=== PATIENT | female | born 1995 | race Caucasian/White ===

== ENCOUNTER 2018-10-09 08:17 | Outpatient (CLI) | payer BC ==
[2018-10-09 08:49] VITALS: BP 129/70; RESP 16
[2018-10-09] MEDS ORDERED: LACTATED RINGERS 1,000 ML IV ONE (09:45)
[2018-10-09 09:46] LABS: Basophils % (A) 0 %; Eosinophils # (A) 0.2 k/uL (0-0.7); Eosinophils % (A) 2 %; HGB 11.9 gm/dL (11.4-16.0); Lymphocytes # (A) 0.7 k/uL (1.0-4.8); Lymphocytes % (A) 7 %; MCH 30.4 pg (25.0-35.0); MCHC 34.1 g/dL (31.0-37.0); MCV 89.2 fL (80.0-100.0); Mean Platelet Volume 7.7; Monocytes # (A) 0.6 k/uL (0-1.0); Monocytes % (A) 6 %; Neutrophils # (A) 8.2 k/uL (1.3-7.7); Neutrophils % (A) 84 %; Platelet Count 208 k/uL (150-450); RBC 3.92 m/uL (3.80-5.40); RDW 12.7 % (11.5-15.5); WBC 9.9 k/uL (3.8-10.6)
[2018-10-09 10:20] LABS: Appearance,Urine Clear (Clear); Bilirubin,Urine Negative (Negative); Blood,Urine Negative (Negative); Color,Urine Light Yellow; Glucose,Urine (UA) Negative (Negative); Ketones,Urine Negative (Negative); Leukocyte Esterase,Urine Negative (Negative); Nitrite,Urine Negative (Negative); PH, Urine 7.5 (5.0-8.0); Protein,Urine Negative (Negative); Specific Gravity,Urine 1.004 (1.001-1.035); Urobilinogen,Urine <2.0 mg/dL (<2.0)
[2018-10-09] MEDS ORDERED: ACETAMINOPHEN TAB 325 MG TAB PO PRN (10:20)
[2018-10-09 10:49] VITALS: PULSE 108; TEMP 99.8
--- NOTE | 2018-10-11 07:29 | P.MSEPDOC ---
Presenting Problems - Arrival Data Date of Arrival on Unit: 10/09/18 Time of Arrival on Unit: 08:45 Mode of Transport: Ambulatory - Complaint OB-Reason for Admission/Chief Complaint: Decreased Movement Comment: resp flu vomiting x 2 days Medical History - Information : 3 Para: 0 Term: 0 : 0 Abortions: Spontaneous or Elective: 0 Number of Living Children: 0 - Gestational Age Gestational Age by PATRICIA (wks/days): 32 Weeks and 5 Days Review of Systems - Review of Systems Constitutional: No problems Breast: No problems ENT: No problems Cardiovascular: No problems Respiratory: No problems Gastrointestinal: No problems Genitourinary: No problems Musculoskeletal: No problems Neurological: No problems Skin: No problems Vital Signs - Temperature Temperature: 99.8 F Temperature Source: Oral - Pulse Sitting Pulse Rate: 108 Pulse Assessment Method: Automatic Cuff - Respirations Respiratory Rate: 16 Oxygen Delivery Method: Room Air - Blood Pressure Right Arm Blood Pressure: 129/70 Blood Pressure Mean: 89 Blood Pressure Source: Automatic Cuff Medical Screen Scoring (Pre) - Cervical Exam Dilation: Exam Deferred - Pain Assessment Pain Scale Used: Numeric (1 - 10) Pain Intensity: 0 Pain Management Goal: 0 Pain Radiation Location: 0 Pain Duration: 0 - Maternal Trauma Maternal Trauma: N/A - Assessment Baseline FHR: 140 Heart Rate - NICHD Category: Category I (Normal) = 0 - Total Score Total Score (Pre): 0 - Level of Risk Level of Risk: Low (0-5) Physician Notification (Pre) - Physician Notified Physician Notified Date: 10/09/18 Physician Notified Time: 08:48 Physician/Practitioner Notifed:: DR NOLASCO New Order Received: Yes Medical Screen Scoring (Post) - Cervical Exam Dilation: 0 cm = 0 Membranes: Intact - Uterine Contractions Frequency: N/A Duration: N/A Intensity: N/A - Pain Assessment Pain Scale Used: Numeric (1 - 10) Pain Intensity: 0 Pain Management Goal: 0 FLACC Face: No Expression/Smile = 0 FLACC Legs: Relaxed = 0 FLACC Activity: Lying Quietly = 0 FLACC Cry: No Cry = 0 FLACC Consolability: Content/Relaxed = 0 FLACC Pain Score: 0 - Maternal Trauma Maternal Trauma: N/A - Assessment Heart Rate: 140 Heart Rate - NICHD Category: Category I (Normal) = 0 - Total Score Total Score (Post): 0 - Post Treatment Level of Risk Post Treatment Level of Risk: Low (0-5) Physician Notification (Post) - Physician Notified Physician Notified Date: 10/09/18 Physician Notified Time: 10:49 Physician/Practitioner Notified:: DR NOLASCO New Order Received: Yes - Notification Comment Comment: PT TO DISCHARGE HOME FOLLOW UP IF FEVERS RISE ABOVE 101 OR DONT RESPOND WITH TYLENOL Disposition - Disposition OB Disposition: Discharge to home, Written follow up instructions reviewed Discharge Date: 10/09/18 Discharge Time: 10:49 I agree with the RN Medical Screening Exam: Yes Risk & Benefit of care provided described in d/c instruction: Yes Diagnosis: DECREASED MOVEMENTS, THIRD TRIMESTER, UNSP
== END 2018-10-09 10:52 | disposition home or self-care (01) ==
LOC: FBPOP 08:17
PROVIDERS: ATTEND Obstetrics & Gynecology
DX: O36.8130 Decreased fetal movements, third trimester, not applicable or unspecified (principal); Z3A.32 32 weeks gestation of pregnancy
CPT/HCPCS: 59025; 81003; 85025; 87502; 96360; 99214

== ENCOUNTER 2018-11-22 19:20 | Inpatient (IN) | payer BC, OTHER ==
--- NOTE | 2018-11-22 21:57 | US ---
EXAMINATION TYPE: US OB limited DATE OF EXAM: 11/22/2018 COMPARISON: NONE CLINICAL HISTORY: KEON. Evaluate KEON EXAM PERFORMED: Transabdominal (TA) GESTATIONAL AGE / DATING Physician Established: (39 weeks/0 days) EDC: 11/29/18 No growth performed on today?s study per ordering physician SURVEY KEON: 6.3 cm lower end of normal HEART RATE: 158 bpm RHYTHM: Normal IMPRESSION: 1. Amniotic fluid index is low measuring 6.3 cm. Normal is 6.4-25.5 at this gestational age.
[2018-11-22 22:42] LABS: Basophils % (A) 0 %; Eosinophils # (A) 0.4 k/uL (0-0.7); Eosinophils % (A) 3 %; HGB 12.1 gm/dL (11.4-16.0); Lymphocytes % (A) 19 %; MCH 28.4 pg (25.0-35.0); MCHC 32.5 g/dL (31.0-37.0); MCV 87.2 fL (80.0-100.0); Mean Platelet Volume 8.3; Monocytes # (A) 0.8 k/uL (0-1.0); Monocytes % (A) 5 %; Neutrophils # (A) 10.9 k/uL (1.3-7.7); Neutrophils % (A) 71 %; Platelet Count 232 k/uL (150-450); RBC 4.25 m/uL (3.80-5.40); WBC 15.3 k/uL (3.8-10.6)
[2018-11-22 22:46] VITALS: BMI 31.1
[2018-11-22 22:49] LABS: Appearance,Urine Clear (Clear); Bacteria,Urine Rare /hpf; Bilirubin,Urine Negative (Negative); Blood,Urine Negative (Negative); Color,Urine Yellow; Glucose,Urine (UA) Negative (Negative); Ketones,Urine Negative (Negative); Leukocyte Esterase,Urine Negative (Negative); Mucus,Urine Occasional /hpf; Nitrite,Urine Negative (Negative); PH, Urine 5.5 (5.0-8.0); Protein,Urine 1+ (Negative); Squamous Epithelial Cell,Urine 1 /hpf (0-4); Urobilinogen,Urine <2.0 mg/dL (<2.0); WBC,Urine 1 /hpf (0-5)
[2018-11-22 23:04] LABS: ALT 49 U/L (9-52); AST 38 U/L (14-36); Blood Urea Nitrogen 14 mg/dL (7-17); LDH 616 U/L (313-618); Uric Acid 5.4 mg/dL (3.7-7.4)
[2018-11-23] MEDS ORDERED: METHYLERGONOVINE 0.2 MG/ML 1 ML AMP IM PRN (06:30)
[2018-11-23] MEDS ORDERED: CARBOPROST TROMETHAMINE 250 MCG/ML 1 ML AMP IM PRN (06:30)
[2018-11-23] MEDS ORDERED: TERBUTALINE 1 MG/ML VIAL SQ PRN (06:30)
[2018-11-23] MEDS ORDERED: OXYTOCIN 10 UNIT/ML 1 ML VIAL IM PRN (06:30)
[2018-11-23] MEDS ORDERED: LIDOCAINE 0.5% (PF) 5 MG/ML (50 ML SDV) SQ PRN (06:30)
[2018-11-23] MEDS ORDERED: OXYTOCIN 30 UNITS/500 ML NS 30 UNIT in SALINE 1 500ML.BAG IV SCH (06:30)
--- NOTE | 2018-11-23 06:38 | P.HPOB ---
History of Present Illness H&P Date: 11/23/18 Chief Complaint: Contractions This patient is a pleasant 23-year-old 3 para 0 female estimated date of confinement 11/29/2018 estimated gestational age 39 and one sevenths weeks who presented last evening to labor and delivery with complaint of contractions. Patient was found to have some elevated blood pressures Dr. Vitale did do blood work on her which showed a mild AST elevation 1+ protein and she was admitted for observation at that time. Patient presented with complaints of contractions is not having other symptomatology. Blood pressures are now normal. Patient transferred care to [facility] from [place]. care has been uncomplicated. Review of Systems Genitourinary: Reports Menstruation: Reports amenorrhea Past Medical History Past Medical History: Asthma Additional Past Medical History / Comment(s): anxiety ptsd depression History of Any Multi-Drug Resistant Organisms: None Reported Additional Past Surgical History / Comment(s): wisdom teeth removed Past Anesthesia/Blood Transfusion Reactions: No Reported Reaction Past Psychological History: Anxiety, Depression, PTSD Smoking Status: Never smoker Past Alcohol Use History: None Reported Past Drug Use History: None Reported - Past Family History Mother Family Medical History: No Reported History Medications and Allergies Allergies Allergy/AdvReac Type Severity Reaction Status Date / Time Penicillins Allergy Rash/Hives Verified 11/22/18 19:39 Exam Vital Signs Temp Pulse Resp BP Pulse Ox 11/23/18 03:57 98.0 F 93 16 134/81 99 11/22/18 23:58 97.9 F 89 16 125/64 11/22/18 23:55 97.9 F 94 16 125/64 97 11/22/18 22:36 98.1 F 93 18 146/85 97 11/22/18 19:40 99.0 F 103 H 18 146/95 96 Intake and Output 11/22/18 11/22/18 11/23/18 14:59 22:59 06:59 Other: # Voids 2 Weight 79.832 kg - OBG Physical Exam Abdomen: bowel sounds normal, no diffuse tenderness, no bruit present, no guarding noted, no hepatomegaly, no splenomegaly, no mass Vulva: both: normal Vagina: normal moisture, no discharge Cervix: no lesion (Cervix is 2-3 cm dilated 80% effaced -2 station.), no discharge Uterus: enlarged (Fundal height is consistent with a term .) Results blood work shows she is O-, rubella immune, RPR nonreactive, HIV is nonreactive, hepatitis B is negative, ultrasounds have shown normal anatomy and growth, Glucola was normal at 90, group B strep was positive, patient received RhoGAM on September 07. Result Diagrams: 11/22/18 22:25 11/22/18 22:25 Abnormal Lab Results - Last 24 Hours (Table) 11/22/18 11/22/18 11/22/18 Range/Units 22:00 22:00 22:25 WBC (3.8-10.6) k/uL Neutrophils # (1.3-7.7) k/uL AST 38 H (14-36) U/L Urine Protein 1+ H (Negative) Urine Bacteria Rare H (None) /hpf Urine Mucus Occasional H (None) /hpf U Random Total Protein 26 H (<12) mg/dL 11/22/18 Range/Units 22:25 WBC 15.3 H (3.8-10.6) k/uL Neutrophils # 10.9 H (1.3-7.7) k/uL AST (14-36) U/L Urine Protein (Negative) Urine Bacteria (None) /hpf Urine Mucus (None) /hpf U Random Total Protein (<12) mg/dL Assessment and Plan Assessment: This is a pleasant 23-year-old 3 para 0 female 39 and one sevenths weeks gestation who is admitted to labor and delivery last evening for her gestational hypertension. Plan at this time is to proceed with augmentation of labor. Patient also be given antibiotics due to positive group B strep culture. Anticipate vaginal delivery. (1) 39 weeks gestation of Current Visit: Yes Status: Acute Code(s): Z3A.39 - 39 WEEKS GESTATION OF SNOMED Code(s): 71251138 (2) Gestational hypertension Current Visit: Yes Status: Acute Code(s): O13.9 - GESTATIONAL HTN W/O SIGNIFICANT PROTEINURIA, UNSP TRIMESTER SNOMED Code(s): 737708748 (3) Group B streptococcal carriage complicating Current Visit: Yes Status: Acute Code(s): O99.820 - STREPTOCOCCUS B CARRIER STATE COMPLICATING SNOMED Code(s): 626940302002387 (4) Rh negative status during Current Visit: Yes Status: Acute Code(s): O26.899 - OTH RELATED CONDITIONS, UNSPECIFIED TRIMESTER; Z67.91 - UNSPECIFIED BLOOD TYPE, RH NEGATIVE SNOMED Code(s): 395434074
[2018-11-23] MEDS: LACTATED RINGERS 1,000 ML IV SCH ×4 (07:00→21:36)
[2018-11-23] MEDS ORDERED: SODIUM CHLORIDE 0.9% 100 ML BAG ONE (10:10)
[2018-11-23] MEDS ORDERED: ROPIVACAINE 5MG/ML 20ML VIAL ONE (10:10)
[2018-11-23] MEDS ORDERED: fentaNYL (PF) 50 MCG/ML 5 ML AMP ONE (10:10)
[2018-11-23] MEDS ORDERED: ROPIVACAINE 100 MG, fentaNYL (PF) 200 MCG in SODIUM CHLORIDE 0.9% 76 ML EPIDURAL ONE (11:10)
[2018-11-23] MEDS ORDERED: diphenhydrAMINE 50 MG/ML 1 ML VIAL IVP PRN (14:17)
[2018-11-23] MEDS ORDERED: BISACODYL 10 MG SUPP RECTAL PRN (14:17)
[2018-11-23] MEDS ORDERED: WITCH HAZEL 1 EACH MED..PAD TOPICAL PRN (14:17)
[2018-11-23] MEDS ORDERED: ACETAMINOPHEN TAB 325 MG TAB PO PRN (14:17)
[2018-11-23] MEDS ORDERED: ZOLPIDEM 5 MG TAB PO PRN (14:17)
[2018-11-23] MEDS ORDERED: BENZOCAINE/MENTHOL SPRAY 1 GM/SPRAY AEROSOL TOPICAL PRN (14:17)
[2018-11-23] MEDS ORDERED: Rhogam IMMUNE GLOBULIN 1,500 UNIT/1 ML IM ONE (14:17)
[2018-11-23] MEDS ORDERED: LANOLIN CREAM 5 GM TUBE TOPICAL PRN (14:17)
[2018-11-23] MEDS ORDERED: SIMETHICONE 80 MG CHEWABLE PO PRN (14:17)
[2018-11-23] MEDS ORDERED: OXYTOCIN 20 UNITS/1000 ML NS 1,000 ML IV SCH (14:17)
[2018-11-23] MEDS ORDERED: HYDROCORTISONE 2.5% RECTAL CREAM 30 GM TUBE RECTAL PRN (14:17)
[2018-11-23] MEDS ORDERED: diphenhydrAMINE 25 MG CAP PO PRN (14:17)
[2018-11-23] MEDS ORDERED: CLINDAMYCIN 900 MG in DEXTROSE 5% IN WATER 50 ML IVPB SCH ×2 (14:31)
[2018-11-23] MEDS: SENNOSIDES-DOCUSATE SODIUM 1 EACH TAB PO SCH ×2 (16:35→21:30)
--- NOTE | 2018-11-23 17:07 | P.PROBDLV ---
Vaginal Delivery Note - . Vaginal Delivery Note: Normal spontaneous vaginal delivery viable female infant Apgars 9 and 9 delivery time is 1350 hrs. Please see dictated H&P for intimate details of this patient's admission. Brief summary this is a pleasant 23-year-old 3 para 0 female 39-0/7 weeks gestation who is admitted to labor and delivery last evening with complaints of contractions and was found to have some mild blood pressure elevations.'s morning patient still having contractions the blood pressures were normal. Preeclampsia labs were negative with the exception of mild AST elevation. Patient is artificial rupture membranes at 2-3 cm dilated for clear fluid. Labor is induced with Pitocin. Patient's labor progresses normally and she does get an epidural for pain control. Patient quickly gets to complete pushes for approximately 60 minutes. Patient pushes the head to the perineum the posterior perineum was supported and we have controlled delivery of the 's head over the intact perineum. Mouth and nares are bulb suctioned. There is no evidence of nuchal cord. At this time there is spontaneous delivery the anterior posterior shoulder and rest this 's body. This is a vigorous viable female infant Apgars are 9 and 9 delivery time is 1350 hrs. After delivery of the infant the is laid on the mother's abdomen after the cord is then pulsating is doubly clamped and then cut. The placenta is then spontaneously delivered intact. Inspection of the perineum shows a first-degree posterior laceration was repaired with 3-0 Vicryl in the usual fashion. Excellent reapproximation is noted. Estimated blood loss is 150 mL. There are no complications. All counts correct 3. Infant and mother are stable delivery room.
[2018-11-23] MEDS: IBUPROFEN 600 MG TAB PO PRN ×2 (17:28→22:49)
--- NOTE | 2018-11-24 05:59 | P.PNOBGVD ---
Subjective - Subjective Patient reports: Reports appetite normal, Reports voiding normally, Reports pain well controlled, Reports ambulating normally : doing well Objective - Latest Vital Signs Latest vital signs: Vital Signs Temp Pulse Resp BP Pulse Ox 11/24/18 00:00 98 F 93 15 135/89 11/23/18 20:00 98 F 90 15 133/85 11/23/18 16:00 98.9 F 116 H 14 130/78 99 11/23/18 15:30 98.4 F 103 H 16 136/71 11/23/18 15:00 99.4 F 112 H 14 129/76 11/23/18 14:45 122 H 16 148/66 11/23/18 14:30 112 H 16 137/74 11/23/18 14:15 122 H 16 134/81 11/23/18 14:00 100.0 F H 126 H 14 124/78 Intake and Output 11/23/18 11/23/18 11/24/18 14:59 22:59 06:59 Other: # Voids 1 - Exam Lungs: bilateral: normal Chest: Normal S1, Normal S2 Extremities: Present: normal Abdomen: Present: normal appearance, soft Uterus: Present: normal, firm Assessment and Plan Assessment: day #1. Patient is resting without complaints. Blood pressures are good. Patient is afebrile. Uterus is firm nontender and she is having normal lochia. Repeat blood work is pending. I impression this is a normal post course. Patient is going to stay today for monitoring and repeat blood work and will be discharged home tomorrow. (1) 39 weeks gestation of Current Visit: Yes Status: Acute Code(s): Z3A.39 - 39 WEEKS GESTATION OF SNOMED Code(s): 59089904 (2) Gestational hypertension Current Visit: Yes Status: Acute Code(s): O13.9 - GESTATIONAL HTN W/O SIGNIFICANT PROTEINURIA, UNSP TRIMESTER SNOMED Code(s): 224280133 (3) Group B streptococcal carriage complicating Current Visit: Yes Status: Acute Code(s): O99.820 - STREPTOCOCCUS B CARRIER STATE COMPLICATING SNOMED Code(s): 378132466159307 (4) Rh negative status during Current Visit: Yes Status: Acute Code(s): O26.899 - OTH RELATED CONDITIONS, UNSPECIFIED TRIMESTER; Z67.91 - UNSPECIFIED BLOOD TYPE, RH NEGATIVE SNOMED Code(s): 478199946
[2018-11-24] MEDS: SENNOSIDES-DOCUSATE SODIUM 1 EACH TAB PO SCH ×2 (07:31→21:26)
[2018-11-24] MEDS: IBUPROFEN 600 MG TAB PO PRN ×3 (07:31→19:20)
[2018-11-24 08:27] LABS: Basophils % (A) 0 %; Eosinophils # (A) 0.2 k/uL (0-0.7); Eosinophils % (A) 2 %; HCT 28.4 % (34.0-46.0); Lymphocytes # (A) 2.3 k/uL (1.0-4.8); Lymphocytes % (A) 19 %; MCH 29.2 pg (25.0-35.0); MCHC 32.4 g/dL (31.0-37.0); MCV 90.1 fL (80.0-100.0); Mean Platelet Volume 8.2; Monocytes # (A) 0.7 k/uL (0-1.0); Monocytes % (A) 6 %; Neutrophils # (A) 8.6 k/uL (1.3-7.7); Neutrophils % (A) 72 %; Platelet Count 182 k/uL (150-450); RBC 3.16 m/uL (3.80-5.40); RDW 14.4 % (11.5-15.5)
[2018-11-24 08:33] LABS: Albumin 2.6 g/dL (3.5-5.0)
[2018-11-24 08:59] LABS: Bilirubin,Unconjugated 0.2 mg/dL (0.0-1.1); Total Bilirubin 0.2 mg/dL (0.2-1.3)
[2018-11-24 09:01] LABS: HGB 9.2 gm/dL (11.4-16.0)
[2018-11-24] MEDS ORDERED: IRON AG/C/B12/CA/SUC.ACID/STOM 1 EACH TAB PO SCH (13:30)
[2018-11-25] MEDS: IBUPROFEN 600 MG TAB PO PRN ×2 (01:06→09:18)
--- NOTE | 2018-11-25 06:19 | P.PNOBGVD ---
Subjective - Subjective Patient reports: Reports appetite normal, Reports voiding normally, Reports pain well controlled, Reports ambulating normally : doing well Objective - Latest Vital Signs Latest vital signs: Vital Signs Temp Pulse Resp BP 11/25/18 00:00 98 F 97 15 131/73 11/24/18 16:00 97.8 F 86 14 144/92 11/24/18 08:00 98 F 88 14 132/82 - Exam Lungs: bilateral: normal Chest: Normal S1, Normal S2 Extremities: Present: normal Abdomen: Present: normal appearance, soft Uterus: Present: normal, firm - Labs Labs: Abnormal Lab Results - Last 24 Hours (Table) 11/24/18 11/24/18 Range/Units 06:13 06:13 WBC 12.0 H (3.8-10.6) k/uL RBC 3.16 L (3.80-5.40) m/uL Hgb 9.2 L D (11.4-16.0) gm/dL Hct 28.4 L (34.0-46.0) % Neutrophils # 8.6 H (1.3-7.7) k/uL AST 39 H (14-36) U/L Alkaline Phosphatase 132 H (38-126) U/L Total Protein 5.0 L (6.3-8.2) g/dL Albumin 2.6 L (3.5-5.0) g/dL Assessment and Plan Assessment: day #2. Patient is resting without complaints. Vital signs are stable and she is afebrile. Uterus is firm nontender and she is having normal lochia. CBC yesterday showed hemoglobin 9.2, normal platelets. Liver function tests remained unchanged. Blood pressures are stable without indication for treatment. Plan at this time is to discharge home follow up with me in 6 weeks. I discussed indications to call for. (1) 39 weeks gestation of Current Visit: Yes Status: Acute Code(s): Z3A.39 - 39 WEEKS GESTATION OF SNOMED Code(s): 22304277 (2) Gestational hypertension Current Visit: Yes Status: Acute Code(s): O13.9 - GESTATIONAL HTN W/O SIGNIFICANT PROTEINURIA, UNSP TRIMESTER SNOMED Code(s): 068681251 (3) Group B streptococcal carriage complicating Current Visit: Yes Status: Acute Code(s): O99.820 - STREPTOCOCCUS B CARRIER STATE COMPLICATING SNOMED Code(s): 698072762806906 (4) Rh negative status during Current Visit: Yes Status: Acute Code(s): O26.899 - OTH RELATED CONDITIONS, UNSPECIFIED TRIMESTER; Z67.91 - UNSPECIFIED BLOOD TYPE, RH NEGATIVE SNOMED Code(s): 876818599
--- NOTE | 2018-11-25 06:22 | P.DS ---
Providers Date of admission: 11/23/18 10:23 Expected date of discharge: 11/25/18 Attending physician: Angel Larson Primary care physician: Stated None - Discharge Diagnosis(es) (1) 39 weeks gestation of Current Visit: Yes Status: Acute (2) Gestational hypertension Current Visit: Yes Status: Acute (3) Group B streptococcal carriage complicating Current Visit: Yes Status: Acute (4) Rh negative status during Current Visit: Yes Status: Acute Hospital Course: Please see dictated H&P for intimate details of this patient's admission. In brief summary this is a pleasant 23-year-old 3 para 0 female admitted to labor and delivery complaining of contractions. She's thought to be in early labor have some mild gestational hypertension. Patient went on to have a vaginal delivery viable female infant. Please see dictated delivery note. day #2 patient's felt be stable for discharge home follow up with me in 6 weeks. Procedures: Normal vaginal delivery viable female infant Patient Condition at Discharge: Good
[2018-11-25 07:37] VITALS: BP 134/81; PULSE 92; RESP 19; TEMP 98.1
[2018-11-25] MEDS: SENNOSIDES-DOCUSATE SODIUM 1 EACH TAB PO SCH (09:37)
== END 2018-11-25 14:37 | disposition home or self-care (01) | DRG 807 ==
LOC: FBPOP 19:20 → 4FBP 21:55 → OBSVTOIN 11-23 10:23
PROVIDERS: ADMIT Obstetrics & Gynecology; ATTEND Obstetrics & Gynecology
PROC: 3E0234Z Introduction of Serum, Toxoid and Vaccine into Muscle, Percutaneous Approach (ICD-10-PCS; principal; 2018-11-23)
PROC: 10E0XZZ Delivery of Products of Conception, External Approach (ICD-10-PCS; 2018-11-23)
PROC: 10907ZC Drainage of Amniotic Fluid, Therapeutic from Products of Conception, Via Natural or Artificial Opening (ICD-10-PCS; 2018-11-23)
PROC: 3E033VJ Introduction of Other Hormone into Peripheral Vein, Percutaneous Approach (ICD-10-PCS; 2018-11-23)
PROC: 0HQ9XZZ Repair Perineum Skin, External Approach (ICD-10-PCS; 2018-11-23)
DX: O13.4 Gestational [pregnancy-induced] hypertension without significant proteinuria, complicating childbirth (principal); Z37.0 Single live birth; O99.824 Streptococcus B carrier state complicating childbirth; O26.893 Other specified pregnancy related conditions, third trimester; O70.0 First degree perineal laceration during delivery; Z3A.39 39 weeks gestation of pregnancy; Z67.91 Unspecified blood type, Rh negative
CPT/HCPCS: 59025; 76815; 80076; 81001; 82565; 82570; 83615; 84156; 84450; 84460; 84520; 84550; 85025; 85461; 86850; 86870; 86880; 86900; 86901; 99213

== ENCOUNTER 2019-09-23 15:42 | Outpatient (CLI) | payer OTHER ==
[2019-09-23 16:20] LABS: Appearance,Urine Clear (Clear); Bilirubin,Urine Negative (Negative); Blood,Urine Negative (Negative); Color,Urine Yellow; Glucose,Urine (UA) Negative (Negative); Ketones,Urine Negative (Negative); Leukocyte Esterase,Urine Negative (Negative); Nitrite,Urine Negative (Negative); PH, Urine 5.5 (5.0-8.0); Protein,Urine Negative (Negative); Specific Gravity,Urine 1.027 (1.001-1.035); Urobilinogen,Urine <2.0 mg/dL (<2.0)
[2019-09-23 16:27] VITALS: BP 128/61; PULSE 92; RESP 18; TEMP 97.5
--- NOTE | 2019-09-23 19:10 | P.MSEPDOC ---
Presenting Problems - Arrival Data Date of Arrival on Unit: 09/23/19 Time of Arrival on Unit: 16:25 Mode of Transport: Ambulatory - Complaint OB-Reason for Admission/Chief Complaint: Pain Medical History - Information : 5 Para: 1 Term: 1 : 0 Abortions: Spontaneous or Elective: 3 Number of Living Children: 1 - Gestational Age Gestational Age by PATRICIA (wks/days): 22 Weeks and 4 Days Review of Systems - Review of Systems Constitutional: No problems Breast: No problems ENT: No problems Cardiovascular: No problems Respiratory: No problems Gastrointestinal: No problems Genitourinary: No problems Musculoskeletal: No problems Neurological: No problems Skin: No problems Vital Signs - Temperature Temperature: 97.5 F Temperature Source: Temporal Artery Scan - Pulse Right Sitting Brachial Pulse Rate: 92 Pulse Assessment Method: Automatic Cuff - Respirations Respiratory Rate: 18 Oxygen Delivery Method: Room Air O2 Sat by Pulse Oximetry: 100 - Blood Pressure Right Arm Sitting Blood Pressure: 128/61 Blood Pressure Mean: 83 Blood Pressure Source: Automatic Cuff Medical Screen Scoring (Pre) - Cervical Exam Dilation: 0 cm = 0 - Uterine Contractions Frequency: N/A Duration: N/A Intensity: N/A - Maternal Vital Signs Maternal Temperature: N/A Maternal Blood Pressure: N/A Signs of Preeclampsia: N/A Maternal Respirations: N/A - Maternal Trauma Maternal Trauma: N/A - Assessment - Baby A Baseline FHR: 135 Heart Rate - NICHD Category: Category I (Normal) = 0 Position: N/A Station: N/A - Total Score - Baby A Total Score - Baby A: 0 - Total Score - Baby B Total Score - Baby B: 0 - Total Score - Baby C Total Score - Baby C: 0 - Level of Risk - Baby A Level of Risk - Baby A: Low (0-5) - Level of Risk - Baby B Level of Risk - Baby B: Low (0-5) - Level of Risk - Baby C Level of Risk - Baby C: Low (0-5) Physician Notification (Pre) - Physician Notified Physician Notified Date: 09/23/19 Physician Notified Time: 16:20 New Order Received: Yes - Notification Comment Comment: dc home if cervix closed. pelvic rest. follow up as scheduled. Disposition - Disposition OB Disposition: Discharge to home Discharge Date: 09/23/19 Discharge Time: 16:25 I agree with the RN Medical Screening Exam: Yes Risk & Benefit of care provided described in d/c instruction: Yes Diagnosis: PAIN, UNSPECIFIED
== END 2019-09-23 16:28 | disposition home or self-care (01) ==
LOC: FBPOP 15:42
PROVIDERS: ATTEND Obstetrics & Gynecology
DX: O99.89 Other specified diseases and conditions complicating pregnancy, childbirth and the puerperium (principal); R52 Pain, unspecified; Z3A.22 22 weeks gestation of pregnancy
CPT/HCPCS: 81003; G0463; 99213

== ENCOUNTER 2020-01-17 06:00 | Inpatient (IN) | payer BC ==
--- NOTE | 2020-01-17 14:28 | P.HPOB ---
History of Present Illness H&P Date: 01/17/20 Chief Complaint: Requested induction of labor. This patient is a pleasant 24 yr EDC 01/23/2020 estimated gestational age 39 2/7 weeks who presents to L&D for requested induction of labor. care has been uncomplicated with the exception of maternal tachycardia with a negative cardiac evaluation. History of positive GBS with her 1st (negative this ). Review of Systems Cardiovascular: Reports as per HPI Genitourinary: Reports Menstruation: Reports amenorrhea Past Medical History Past Medical History: Asthma Additional Past Medical History / Comment(s): Maternal tachycardia (negative evaluation). History of anxiety/depression. History of Any Multi-Drug Resistant Organisms: None Reported Past Surgical History: No Surgical Hx Reported Additional Past Surgical History / Comment(s): wisdom teeth removed Past Anesthesia/Blood Transfusion Reactions: No Reported Reaction Past Psychological History: Anxiety, Depression, PTSD Smoking Status: Never smoker Past Alcohol Use History: None Reported Past Drug Use History: None Reported - Past Family History Mother Family Medical History: No Reported History Medications and Allergies Home Medications Medication Instructions Recorded Confirmed Type Ibuprofen [Motrin] 600 mg PO Q6HR PRN #40 tab 11/25/18 Rx Iron Ag/C/B12/Ca/Suc.acid/Stom 1 each PO DAILY #30 tab 11/25/18 Rx [Multigen] Allergies Allergy/AdvReac Type Severity Reaction Status Date / Time Penicillins Allergy Rash/Hives Verified 11/22/18 19:39 Exam - OBG Physical Exam Abdomen: bowel sounds normal, no diffuse tenderness, no bruit present, no guarding noted, no hepatomegaly, no splenomegaly, no mass Vulva: both: normal Vagina: normal moisture, no discharge Cervix: no lesion (Cx 2/uneffaced/soft (office)), no discharge Uterus: enlarged (Fundal height is 38 cm. ) Results bloodwork: O negative (received Rhogam 11/09), Rubella Non-Immune, VXP-XLM-VtnH negative, Glucola 64, GBS negative (positive 1st ), ultrasounds have been normal. Assessment and Plan Assessment: This is a pleasant 24 yr female estimated gestational age 39 2/7 weeks who presents for requested induction of labor. History of positive GBS 1st . Plan is antibiotic prophylaxis and induction of labor. Anticipate vaginal delivery. (1) 39 weeks gestation of Status: Acute Code(s): Z3A.39 - 39 WEEKS GESTATION OF SNOMED Code(s): 41644138 (2) Rh negative status during Status: Acute Code(s): O26.899 - OTH RELATED CONDITIONS, UNSPECIFIED TRIMESTER; Z67.91 - UNSPECIFIED BLOOD TYPE, RH NEGATIVE SNOMED Code(s): 322186965 (3) Elective induction of labor planned Status: Acute Code(s): XXH9713 - SNOMED Code(s): 347601030 (4) History of group B Streptococcus (GBS) infection Status: Acute Code(s): Z86.19 - PERSONAL HISTORY OF OTHER INFECTIOUS AND PARASITIC DISEASES SNOMED Code(s): 778386953
[2020-01-18] MEDS ORDERED: OXYTOCIN 10 UNIT/ML 1 ML VIAL IM PRN (05:56)
[2020-01-18] MEDS ORDERED: TERBUTALINE 1 MG/ML VIAL SQ PRN (05:56)
[2020-01-18] MEDS ORDERED: METHYLERGONOVINE 0.2 MG/ML 1 ML AMP IM PRN (05:56)
[2020-01-18] MEDS ORDERED: LIDOCAINE 0.5% (PF) 5 MG/ML (50 ML SDV) SQ PRN (05:56)
[2020-01-18] MEDS ORDERED: CARBOPROST TROMETHAMINE 250 MCG/ML 1 ML AMP IM PRN (05:56)
[2020-01-18] MEDS ORDERED: OXYTOCIN 30 UNITS/500 ML NS 30 UNIT in SALINE 1 500ML.BAG IV SCH (05:56)
[2020-01-18] MEDS: LACTATED RINGERS 1,000 ML IV SCH ×2 (05:58→09:11)
[2020-01-18 06:07] VITALS: RESP 16
[2020-01-18 06:22] LABS: Basophils % (A) 0 %; Eosinophils # (A) 0.4 k/uL (0-0.7); Eosinophils % (A) 3 %; HCT 33.8 % (34.0-46.0); HGB 11.4 gm/dL (11.4-16.0); Lymphocytes # (A) 2.2 k/uL (1.0-4.8); Lymphocytes % (A) 20 %; MCH 27.6 pg (25.0-35.0); MCHC 33.6 g/dL (31.0-37.0); MCV 82.2 fL (80.0-100.0); Mean Platelet Volume 8.3; Monocytes # (A) 0.6 k/uL (0-1.0); Monocytes % (A) 5 %; Neutrophils # (A) 7.5 k/uL (1.3-7.7); Neutrophils % (A) 69 %; Platelet Count 262 k/uL (150-450); RBC 4.12 m/uL (3.80-5.40); RDW 14.6 % (11.5-15.5)
[2020-01-18] MEDS ORDERED: ROPIVACAINE 5MG/ML 20ML VIAL ONE (08:55)
[2020-01-18] MEDS ORDERED: fentaNYL (PF) 50 MCG/ML 5 ML AMP ONE (08:55)
[2020-01-18] MEDS ORDERED: SODIUM CHLORIDE 0.9% 100 ML BAG ONE (08:55)
[2020-01-18] MEDS ORDERED: SIMETHICONE 80 MG CHEWABLE PO PRN (12:25)
[2020-01-18] MEDS ORDERED: diphenhydrAMINE 50 MG/ML 1 ML VIAL IVP PRN (12:25)
[2020-01-18] MEDS ORDERED: Rhogam IMMUNE GLOBULIN 1,500 UNIT/1 ML IM ONE (12:25)
[2020-01-18] MEDS ORDERED: BENZOCAINE/MENTHOL SPRAY 1 GM/SPRAY AEROSOL TOPICAL PRN (12:25)
[2020-01-18] MEDS ORDERED: MEASLES-MUMPS-RUBELLA VACC/PF 12,500 UNIT/0.5 ML VIAL SQ ONE (12:25)
[2020-01-18] MEDS ORDERED: IBUPROFEN 600 MG TAB PO PRN (12:25)
[2020-01-18] MEDS ORDERED: WITCH HAZEL 1 EACH MED..PAD TOPICAL PRN (12:25)
[2020-01-18] MEDS ORDERED: diphenhydrAMINE 25 MG CAP PO PRN (12:25)
[2020-01-18] MEDS ORDERED: ZOLPIDEM 5 MG TAB PO PRN (12:25)
[2020-01-18] MEDS ORDERED: BISACODYL 10 MG SUPP RECTAL PRN (12:25)
[2020-01-18] MEDS ORDERED: OXYTOCIN 20 UNITS/1000 ML NS 1,000 ML IV SCH (12:25)
[2020-01-18] MEDS ORDERED: HYDROCORTISONE 2.5% RECTAL CREAM 30 GM TUBE RECTAL PRN (12:25)
[2020-01-18] MEDS ORDERED: LANOLIN CREAM 5 GM TUBE TOPICAL PRN (12:25)
--- NOTE | 2020-01-18 14:10 | P.PROBDLV ---
Vaginal Delivery Note - . Vaginal Delivery Note: Normal vaginal delivery viable male infant Apgars 9 and 9 delivery time was 1202 hrs. Please see dictated H&P for intimate details of this patient's admission. Brief summary is a pleasant 24-year-old 4 para 1 female 39-2/7 weeks gestation admitted to labor and delivery for requested induction of labor. On admission patient is proximate 3 cm dilation is artificial rupture membranes for clear fluid. Labor is induced with Pitocin per protocol. Patient's labor progresses and she does get an epidural for pain control. Patient gets to complete and with proximally 2 pushes pushes the head to the perineum. Posterior perineum is supported and we have controlled delivery of infant's head over the intact perineum. Mouth and nares are bulb suctioned. There is a nuchal cord which is reduced. Gentle downward traction we then have deliver the anterior and posterior shoulder and rest this infant's body. This is a vigorous viable male Apgars 9 and 9 delivery time was 1202 hrs. After delivery of the infant the is laid the mother's abdomen the cord was allowed to quit pulsating then doubly clamped and cut. It appears to be trivascular. Placenta spontaneously delivered intact. Estimated blood loss is approximately 100-250 mL. Inspection of the perineum shows only superficial tears which did not require suturing. All counts are correct 3. There are no complications. and mother stable delivery room.
[2020-01-18] MEDS: ACETAMINOPHEN TAB 325 MG TAB PO PRN ×2 (16:11→22:54)
[2020-01-18] MEDS: SENNOSIDES-DOCUSATE SODIUM 1 EACH TAB PO SCH ×2 (16:11→20:11)
--- NOTE | 2020-01-19 06:58 | P.PNOBGVD ---
Subjective - Subjective Patient reports: Reports appetite normal, Reports voiding normally, Reports pain well controlled, Reports ambulating normally : doing well Objective - Latest Vital Signs Latest vital signs: Vital Signs Temp Pulse Resp BP 01/18/20 23:40 98.3 F 80 16 114/69 01/18/20 20:00 98.9 F 99 16 112/73 01/18/20 16:00 99.0 F 106 H 16 116/55 01/18/20 14:30 99.0 F 101 H 16 124/59 01/18/20 14:00 108 H 16 133/60 01/18/20 13:30 98.3 F 97 16 123/60 01/18/20 13:15 81 16 117/63 01/18/20 13:00 98.2 F 82 16 112/61 01/18/20 12:45 90 16 117/64 01/18/20 12:30 88 16 116/58 01/18/20 12:15 98.3 F 93 16 106/58 Intake and Output 01/18/20 01/18/20 01/19/20 14:59 22:59 06:59 Output Total 50 Balance -50 Output: Estimated Blood Loss 50 Other: # Voids 1 1 - Exam Lungs: bilateral: normal Chest: Normal S1, Normal S2 Extremities: Present: normal Abdomen: Present: normal appearance, soft Uterus: Present: normal, firm Assessment and Plan Assessment: day #1. Patient is resting without complaints and wishes to go home. Vital signs are stable she is afebrile. Uterus is firm nontender she's having normal lochia. My impression this is a normal course. Plan is to continue routine care discharge home later today. (1) 39 weeks gestation of Current Visit: No Status: Acute Code(s): Z3A.39 - 39 WEEKS GESTATION OF SNOMED Code(s): 03906274 (2) Rh negative status during Current Visit: No Status: Acute Code(s): O26.899 - OTH RELATED CONDITIONS, UNSPECIFIED TRIMESTER; Z67.91 - UNSPECIFIED BLOOD TYPE, RH NEGATIVE SNOMED Code(s): 064006087 (3) Elective induction of labor planned Current Visit: No Status: Acute Code(s): TQM4037 - SNOMED Code(s): 693093516 (4) History of group B Streptococcus (GBS) infection Current Visit: No Status: Acute Code(s): Z86.19 - PERSONAL HISTORY OF OTHER INFECTIOUS AND PARASITIC DISEASES SNOMED Code(s): 822189265
--- NOTE | 2020-01-19 07:01 | P.DS ---
Providers Date of admission: 01/18/20 05:50 Expected date of discharge: 01/19/20 Attending physician: Angel Larson Primary care physician: Stated None - Discharge Diagnosis(es) (1) 39 weeks gestation of Current Visit: No Status: Acute (2) Rh negative status during Current Visit: No Status: Acute (3) Elective induction of labor planned Current Visit: No Status: Acute (4) History of group B Streptococcus (GBS) infection Current Visit: No Status: Acute Hospital Course: Please see dictated H&P for intimate details of this patient's admission. Brief summary this is a pleasant 24-year-old 4 para 1 female 39-2/7 weeks gestation admitted to labor and delivery for requested induction of labor. Patient is admitted she is uncomplicated induction of labor quickly goes on have a vaginal delivery viable male . Please see dictated delivery note. day 1 patient without complaints wishes to go home. Patient's felt be stable for discharge home follow up with me in 6 weeks. Procedures: Induction of labor and normal vaginal delivery Patient Condition at Discharge: Good Plan - Discharge Summary New Discharge Prescriptions: New Ibuprofen [Motrin] 600 mg PO Q6HR PRN #30 tab PRN Reason: Mild Pain Or Fever >= 100.5 Discharge Medication List Ibuprofen [Motrin] 600 mg PO Q6HR PRN #30 tab 01/19/20 [Rx] Follow up Appointment(s)/Referral(s): Angel Larson MD [STAFF PHYSICIAN] - 02/29/20 10:15 am Patient Instructions/Handouts: Vaginal Delivery (DC) Activity/Diet/Wound Care/Special Instructions: No intercourse or anything per vagina for 6 weeks. Please call if any fever, chills, excessive vaginal bleeding, and/or abdominal pain. Discharge Disposition: HOME SELF-CARE
[2020-01-19] MEDS: ACETAMINOPHEN TAB 325 MG TAB PO PRN (07:58)
[2020-01-19] MEDS: SENNOSIDES-DOCUSATE SODIUM 1 EACH TAB PO SCH (07:59)
[2020-01-19 08:14] VITALS: BP 120/67; PULSE 98; TEMP 98.1
== END 2020-01-19 13:12 | disposition home or self-care (01) | DRG 807 ==
LOC: 4FBP 01-18 05:50
PROVIDERS: ADMIT Obstetrics & Gynecology; ATTEND Obstetrics & Gynecology
PROC: 3E033VJ Introduction of Other Hormone into Peripheral Vein, Percutaneous Approach (ICD-10-PCS; principal; 2020-01-18)
PROC: 3E0R3BZ Introduction of Anesthetic Agent into Spinal Canal, Percutaneous Approach (ICD-10-PCS; principal; 2020-01-18)
PROC: 10E0XZZ Delivery of Products of Conception, External Approach (ICD-10-PCS; principal; 2020-01-18)
PROC: 00HU33Z Insertion of Infusion Device into Spinal Canal, Percutaneous Approach (ICD-10-PCS; principal; 2020-01-18)
PROC: 10907ZC Drainage of Amniotic Fluid, Therapeutic from Products of Conception, Via Natural or Artificial Opening (ICD-10-PCS; principal; 2020-01-18)
DX: O69.81X0 Labor and delivery complicated by cord around neck, without compression, not applicable or unspecified (principal); Z37.0 Single live birth; O26.893 Other specified pregnancy related conditions, third trimester; O99.62 Diseases of the digestive system complicating childbirth; O70.9 Perineal laceration during delivery, unspecified; K21.9 Gastro-esophageal reflux disease without esophagitis; Z3A.39 39 weeks gestation of pregnancy; Z67.91 Unspecified blood type, Rh negative; Z86.59 Personal history of other mental and behavioral disorders; Z87.09 Personal history of other diseases of the respiratory system; Z88.0 Allergy status to penicillin
CPT/HCPCS: 85025; 85461; 86850; 86870; 86880; 86900; 86901; 90707

== ENCOUNTER 2024-10-19 08:09 | Emergency (ER) | payer BC, OTHER ==
[2024-10-19 08:19] VITALS: TEMP 98.4
--- NOTE | 2024-10-19 08:37 | ED ---
General Adult HPI - General Chief complaint: Abdominal Pain Stated complaint: 13 wks abd cramping Time Seen by Provider: 10/19/24 08:35 Source: patient, RN notes reviewed Mode of arrival: wheelchair Limitations: no limitations - History of Present Illness Initial comments: 28-year-old A1 approximately 13 weeks gestation presented to the ER for evaluation of abdominal cramping. Patient reports her last menstrual cycle was first week of July 2024. Patient has not followed up with OB at this time due to insurance issues. Patient reports for the past 2 days she has been experiencing lower abdominal cramping. She states these are making this difficult for her to sleep and she finds herself pacing in the middle the night or in the position. She denies any vaginal bleeding or discharge. Patient also reports chills and sweats over the past 2 days along with nausea and decreased appetite. She denies vomiting or fevers. No chest pain or shortness of breath, urinary complaints, constipation/diarrhea or peripheral edema. - Related Data Previous Rx's Medication Instructions Recorded Ibuprofen [Motrin] 600 mg PO Q6HR PRN #30 tab 01/19/20 Allergies Allergy/AdvReac Type Severity Reaction Status Date / Time Penicillins Allergy Rash/Hives Verified 10/19/24 08:16 Review of Systems ROS Statement: Those systems with pertinent positive or pertinent negative responses have been documented in the HPI. ROS Other: All systems not noted in ROS Statement are negative. Past Medical History Past Medical History: Asthma Additional Past Medical History / Comment(s): Maternal tachycardia (negative evaluation). History of anxiety/depression. History of Any Multi-Drug Resistant Organisms: None Reported Past Surgical History: No Surgical Hx Reported Additional Past Surgical History / Comment(s): wisdom teeth removed Past Anesthesia/Blood Transfusion Reactions: No Reported Reaction Past Psychological History: Anxiety, Depression, PTSD Past Alcohol Use History: None Reported Past Drug Use History: None Reported - Past Family History Mother Family Medical History: No Reported History General Exam Limitations: no limitations General appearance: alert, in no apparent distress Respiratory exam: Present: normal lung sounds bilaterally. Absent: respiratory distress, wheezes, rales, rhonchi, stridor Cardiovascular Exam: Present: regular rate, normal rhythm, normal heart sounds. Absent: systolic murmur, diastolic murmur, rubs, gallop, clicks GI/Abdominal exam: Present: soft, tenderness (Suprapubic), normal bowel sounds Neurological exam: Present: alert, oriented X3, CN II-XII intact Skin exam: Present: warm, dry, intact, normal color. Absent: rash Course Vital Signs 10/19/24 08:16 Temperature 98.4 F Pulse Rate 117 H Respiratory 16 Rate Blood Pressure 126/82 O2 Sat by Pulse 100 Oximetry Medical Decision Making - Medical Decision Making Was pt. sent in by a medical professional or institution (, PA, MOHEL, urgent care, hospital, or alf...) When possible be specific @ -[No] Did you speak to anyone other than the patient for history (EMS, parent, family, police, friend...)? What history was obtained from this source @ -[No] Did you review nursing and triage notes (agree or disagree)? Why? @ -[I reviewed and agree with nursing and triage notes] Were old charts reviewed (outside hosp., previous admission, EMS record, old EKG, old radiological studies, urgent care reports/EKG's, alf records)? Report findings @ -[No old charts were reviewed] Differential Diagnosis (chest pain, altered mental status, abdominal pain women, abdominal pain men, vaginal bleeding, weakness, fever, dyspnea, syncope, headache, dizziness, GI bleed, back pain, seizure, CVA, palpatations, mental health, musculoskeletal)? @ -Differential Abdominal Pain Women:Appendicitis, Cholecystitis, diverticulosis, ischemic bowel, pancreatitis, hepatitis, UTI, gastroenteritis, AAA, incarcerated hernia, bowel obstruction, constipation, inflammatory bowel, hepatitis, peptic ulcer disease, splenic infarction, perforated viscus, vulvitis, ovarian torsion, PID, kidney stone, placenta abruption, this is not meant to be an all-inclusive list EKG interpreted by me (3pts min.). @ -None done X-rays interpreted by me (1pt min.). @ -[None done] CT interpreted by me (1pt min.). @ -[None done] U/S interpreted by me (1pt. min.). @ -[None done] What testing was considered but not performed or refused? (CT, X-rays, U/S, labs)? Why? @ -[None] What meds were considered but not given or refused? Why? @ -[None] Did you discuss the management of the patient with other professionals (professionals i.e. , PA, MOHEL, lab, RT, psych nurse, social staff worker, video manager, teacher, learning and development officer, casework supervisor)? Give summary @ -[No] Was smoking cessation discussed for >3mins.? @ -[No] Was critical care preformed (if so, how long)? @ -[No] Were there social determinants of health that impacted care today? How? (Homelessness, low income, unemployed, alcoholism, drug addiction, transportation, low edu. Level, literacy, decrease access to med. care, senior care, rehab)? @ -Patient insurance is based out of [place] and she is having difficulties following up outpatient with an sludge mill operator. Was there de-escalation of care discussed even if they declined (Discuss DNR or withdrawal of care, Hospice)? DNR status @ -[No] What co-morbidities impacted this encounter? (DM, HTN, Smoking, COPD, CAD, Cancer, CVA, ARF, Chemo, Hep., AIDS, mental health diagnosis, sleep apnea, morbid obesity)? @ - Was patient admitted / discharged? Hospital course, mention meds given and route, prescriptions, significant lab abnormalities, going to OR and other pertinent info. @ -[hospital course] Undiagnosed new problem with uncertain prognosis? @ -[No] Drug Therapy requiring intensive monitoring for toxicity (Heparin, Nitro, Insulin, Cardizem)? @ -[No] Were any procedures done? @ -[No] Diagnosis/symptom? @ -[default] Acute, or Chronic, or Acute on Chronic? @ -[default] Uncomplicated (without systemic symptoms) or Complicated (systemic symptoms)? @ -[default] Side effects of treatment? @ -[No] Exacerbation, Progression, or Severe Exacerbation? @ -[No] Poses a threat to life or bodily function? How? (Chest pain, [place], [place], pneumonia, PE, COPD, DKA, ARF, appy, cholecystitis, CVA, Diverticulitis, Homicidal, Suicidal, threat to staff... and all critical care pts) @ -[No] - Lab Data Result diagrams: 10/19/24 08:38 10/19/24 08:38 Lab Results 10/19/24 10/19/24 10/19/24 Range/Units 08:38 08:38 08:38 WBC 10.0 (3.8-10.6) k/uL RBC 4.59 (3.80-5.40) m/uL Hgb 14.0 (11.4-16.0) gm/dL Hct 40.8 (34.0-46.0) % MCV 88.8 (80.0-100.0) fL MCH 30.4 (25.0-35.0) pg MCHC 34.3 (31.0-37.0) g/dL RDW 12.8 (11.5-15.5) % Plt Count 269 (150-450) k/uL MPV 7.2 Neutrophils % 71 % Lymphocytes % 21 % Monocytes % 4 % Eosinophils % 2 % Basophils % 0 % Neutrophils # 7.1 (1.3-7.7) k/uL Lymphocytes # 2.1 (1.0-4.8) k/uL Monocytes # 0.4 (0-1.0) k/uL Eosinophils # 0.2 (0-0.7) k/uL Basophils # 0.0 (0-0.2) k/uL Sodium 135 L (137-145) mmol/L Potassium 4.1 (3.5-5.1) mmol/L Chloride 102 (98-107) mmol/L Carbon Dioxide 23 (22-30) mmol/L Anion Gap 10 mmol/L BUN 7 (7-17) mg/dL Creatinine 0.57 (0.52-1.04) mg/dL Est GFR (CKD-EPI)AfAm >90 (>60 ml/min/1.73 sqM) Est GFR (CKD-EPI)NonAf >90 (>60 ml/min/1.73 sqM) Glucose 79 (74-99) mg/dL Calcium 9.8 (8.4-10.2) mg/dL Total Bilirubin 0.6 (0.2-1.3) mg/dL AST 22 (14-36) U/L ALT 15 (4-34) U/L Alkaline Phosphatase 54 (38-126) U/L Total Protein 7.9 (6.3-8.2) g/dL Albumin 4.8 (3.5-5.0) g/dL Urine Color Colorless Urine Appearance Clear (Clear) Urine pH 6.0 (5.0-8.0) Ur Specific [place] 1.013 (1.001-1.035) Urine Protein Negative (Negative) Urine Glucose (UA) Negative (Negative) Urine Ketones Negative (Negative) Urine Blood Negative (Negative) Urine Nitrite Negative (Negative) Urine Bilirubin Negative (Negative) Urine Urobilinogen <2.0 (<2.0) mg/dL Ur Leukocyte Esterase Negative (Negative) Blood Type Blood Type Recheck Bld Type Recheck Status 10/19/24 Range/Units 08:38 WBC (3.8-10.6) k/uL RBC (3.80-5.40) m/uL Hgb (11.4-16.0) gm/dL Hct (34.0-46.0) % MCV (80.0-100.0) fL MCH (25.0-35.0) pg MCHC (31.0-37.0) g/dL RDW (11.5-15.5) % Plt Count (150-450) k/uL MPV Neutrophils % % Lymphocytes % % Monocytes % % Eosinophils % % Basophils % % Neutrophils # (1.3-7.7) k/uL Lymphocytes # (1.0-4.8) k/uL Monocytes # (0-1.0) k/uL Eosinophils # (0-0.7) k/uL Basophils # (0-0.2) k/uL Sodium (137-145) mmol/L Potassium (3.5-5.1) mmol/L Chloride (98-107) mmol/L Carbon Dioxide (22-30) mmol/L Anion Gap mmol/L BUN (7-17) mg/dL Creatinine (0.52-1.04) mg/dL Est GFR (CKD-EPI)AfAm (>60 ml/min/1.73 sqM) Est GFR (CKD-EPI)NonAf (>60 ml/min/1.73 sqM) Glucose (74-99) mg/dL Calcium (8.4-10.2) mg/dL Total Bilirubin (0.2-1.3) mg/dL AST (14-36) U/L ALT (4-34) U/L Alkaline Phosphatase (38-126) U/L Total Protein (6.3-8.2) g/dL Albumin (3.5-5.0) g/dL Urine Color Urine Appearance (Clear) Urine pH (5.0-8.0) Ur Specific [place] (1.001-1.035) Urine Protein (Negative) Urine Glucose (UA) (Negative) Urine Ketones (Negative) Urine Blood (Negative) Urine Nitrite (Negative) Urine Bilirubin (Negative) Urine Urobilinogen (<2.0) mg/dL Ur Leukocyte Esterase (Negative) Blood Type O Negative Blood Type Recheck O Neg Bld Type Recheck Status No Disposition Clinical Impression: Abdominal cramping affecting Disposition: HOME SELF-CARE Condition: Stable Instructions (If sedation given, give patient instructions): (ED) Additional Instructions: Follow-up with PROGRAM MANAGER SLP. Return to ER for any new or worsening concerns. Is patient prescribed a controlled substance at d/c from ED?: No Referrals: None,Stated [Primary Care Provider] - 1-2 days Kiki Vitale DO [Doctor of Osteopathic Medicine] - 1-2 days Time of Disposition: 09:49
[2024-10-19] MEDS: ACETAMINOPHEN TAB 325 MG TAB PO STA (08:42)
[2024-10-19 08:55] LABS: Basophils % (A) 0 %; Eosinophils # (A) 0.2 k/uL (0-0.7); Eosinophils % (A) 2 %; HCT 40.8 % (34.0-46.0); Lymphocytes # (A) 2.1 k/uL (1.0-4.8); Lymphocytes % (A) 21 %; MCH 30.4 pg (25.0-35.0); MCHC 34.3 g/dL (31.0-37.0); MCV 88.8 fL (80.0-100.0); Mean Platelet Volume 7.2; Monocytes # (A) 0.4 k/uL (0-1.0); Monocytes % (A) 4 %; Neutrophils # (A) 7.1 k/uL (1.3-7.7); Neutrophils % (A) 71 %; Platelet Count 269 k/uL (150-450); RBC 4.59 m/uL (3.80-5.40); RDW 12.8 % (11.5-15.5)
[2024-10-19 09:06] LABS: Appearance,Urine Clear (Clear); Bilirubin,Urine Negative (Negative); Blood,Urine Negative (Negative); Color,Urine Colorless; Glucose,Urine (UA) Negative (Negative); Ketones,Urine Negative (Negative); Leukocyte Esterase,Urine Negative (Negative); Nitrite,Urine Negative (Negative); Protein,Urine Negative (Negative); Specific Gravity,Urine 1.013 (1.001-1.035); Urobilinogen,Urine <2.0 mg/dL (<2.0)
[2024-10-19 09:10] LABS: ALT 15 U/L (4-34); AST 22 U/L (14-36); African American GFR (CKD) >90 (>60 ml/min/1.73 sqM); Albumin 4.8 g/dL (3.5-5.0); Alkaline Phosphatase 54 U/L (38-126); Anion Gap 10 mmol/L; Blood Urea Nitrogen 7 mg/dL (7-17); Calcium 9.8 mg/dL (8.4-10.2); Carbon Dioxide 23 mmol/L (22-30); Chloride 102 mmol/L (98-107); Glucose 79 mg/dL (74-99); Non-African American GFR(CKD) >90 (>60 ml/min/1.73 sqM); Potassium 4.1 mmol/L (3.5-5.1); Sodium 135 mmol/L (137-145); Total Bilirubin 0.6 mg/dL (0.2-1.3); Total Protein 7.9 g/dL (6.3-8.2)
--- NOTE | 2024-10-19 09:19 | US ---
EXAMINATION TYPE: Transabdominal DATE OF EXAM: 10/19/2024 8:56 AM COMPARISON: NONE CLINICAL INDICATION: Female, 28 years old with history of abd cramping about 13wk preg; Cramping x 2 days; No bleeding; Hx RH Negative with Rhogam shots in previous pregnancies; Last had multi ple threatened abortions. TECHNIQUE: Transabdominal (TA) with grayscale and color Doppler imaging including first trimester pre gnancy. FINDINGS: EXAM MEASUREMENTS: GESTATIONAL AGE / DATING Physician Established: Not yet established ( weeks/ days) EDC: Dates by LMP: 07/17/2024 (13 weeks/3 days) EDC: 04/23/2025 Dates by First Scan: No previous this is first scan ( weeks/ days) EDC: Dates by Current Scan for: (12 weeks/5 days) EDC: 04/28/2025 MATERNAL ANATOMY Uterus: 12.7 x 6.9 x 10.7 cm Right Ovary: 3.0 x 2.1 x 1.4 cm Left Ovary: 3.2 x 1.2 x 3.7 cm Post CDS / Adnexa: WNL Presence of free fluid: WNL Presence of corpus luteal cyst: No Presence of subchorionic bleed: No GESTATION / SURVEY CRL: 6.28 (12 weeks/5 days) Gestational Sac morphology: Normal Gestational Sac MSD: NA ( weeks/ days) Yolk Sac (normal less than 6mm): Not seen Heart Rate: 162 bpm Rhythm: Normal IUP: Viable IUP Nuchal Translucency 10-14wks (normal less than 3mm): 1 mm Age Appropriate Anatomy Cord Insertion: Visualized Limbs: Visualized Calvarium: Visualized Date of LMP: 07/17/2024 Beta HcG (if available): Not done by ER staff Prominence seen anterior mid uterus Single live intrauterine gestation is present. No free fluid. Both ovaries seen. No suspicious extra ovarian adnexal masses. IMPRESSION: 1. Confirmation of single live intrauterine gestation, mean crown-rump length 6.3 cm corresponding to 12 week 5 day old fetus. [facility], , 10/19/2024 9:17 AM
[2024-10-19 09:58] VITALS: BP 129/70; PULSE 79; RESP 20
[2024-10-19 10:45] LABS: HCG,Quantitative Serum 73130.6 mIU/mL
== END 2024-10-19 09:59 | disposition home or self-care (01) ==
LOC: EC 08:09
DX: O26.891 Other specified pregnancy related conditions, first trimester (principal); R10.30 Lower abdominal pain, unspecified; Z88.0 Allergy status to penicillin; Z3A.13 13 weeks gestation of pregnancy
CPT/HCPCS: 36415; 76801; 80053; 81003; 84702; 85025; 86900; 86901; 99284

== ENCOUNTER 2024-11-11 10:29 | Outpatient (CLI) | payer OTHER ==
--- NOTE | 2024-11-11 11:23 | US ---
EXAMINATION TYPE: US OB limited DATE OF EXAM: 11/11/2024 COMPARISON: Early OB only CLINICAL INDICATION: Female, 29 years old with history of leaking fluid; Pt states waking up today wi th possible fluid leaking TECHNIQUE:: Transabdominal (TA) FINDINGS: GESTATIONAL AGE / DATING Physician Established: (16 weeks/3 days) EDC: 04/25/2025 No growth performed on today?s study per ordering physician SURVEY KEON: Estimated 11.0 cm, Normal Possibly too early to measure KEON, however adequate amount of fl uid was visualized surrounding fetus Ultrasound evidence of premature rupture of membranes? No HEART RATE: 149 bpm RHYTHM: Normal IMPRESSION: No convincing sonographic findings of premature rupture of membranes at this time. Ultra sound follow-up as clinically indicated. Live intrauterine . [facility], Workstation: [employer], 11/11/2024 11:20 AM
[2024-11-11 12:06] LABS: Appearance,Urine Cloudy (Clear); Bacteria,Urine Many /hpf; Bilirubin,Urine Negative (Negative); Blood,Urine Negative (Negative); Color,Urine Colorless; Glucose,Urine (UA) Negative (Negative); Ketones,Urine Negative (Negative); Leukocyte Esterase,Urine Moderate (Negative); Mucus,Urine Rare /hpf; Nitrite,Urine Negative (Negative); Protein,Urine Negative (Negative); RBC,Urine 2 /hpf (0-5); Squamous Epithelial Cell,Urine 4 /hpf (0-4); Urobilinogen,Urine <2.0 mg/dL (<2.0); WBC,Urine 3 /hpf (0-5)
[2024-11-11 12:18] VITALS: BP 127/76; PULSE 111; RESP 18; TEMP 98.4
== END 2024-11-11 12:19 | disposition home or self-care (01) ==
LOC: FBPOP 10:29
PROVIDERS: ATTEND Obstetrics & Gynecology
DX: Z87.19 Personal history of other diseases of the digestive system (principal); Z3A.16 16 weeks gestation of pregnancy; Z88.0 Allergy status to penicillin
CPT/HCPCS: 76815; 81001; 84112; 99213

== ENCOUNTER 2025-02-11 11:56 | Observation (INO) | payer OTHER ==
[2025-02-11 12:38] LABS: Basophils # (A) 0.04 10*3/uL (0.00-0.10); Basophils % (A) 0.3 %; Eosinophils # (A) 0.18 10*3/uL (0.04-0.35); Eosinophils % (A) 1.5 %; HCT 34.2 % (37.2-46.3); HGB 12.2 g/dL (12.0-15.0); Lymphocytes # (A) 2.06 10*3/uL (0.90-5.00); Lymphocytes % (A) 17.2 %; MCH 31.7 pg (27.0-32.0); MCHC 35.7 g/dL (32.0-37.0); MCV 88.8 fL (80.0-97.0); Mean Platelet Volume 9.9 fL (9.5-12.2); Monocytes # (A) 0.76 10*3/uL (0.20-1.00); Monocytes % (A) 6.4 %; Neutrophils # (A) 8.74 10*3/uL (1.80-7.70); Neutrophils % (A) 73.2 %; Platelet Count 217 10*3/uL (140-440); RBC 3.85 10*6/uL (4.10-5.20); RDW 12.5 % (11.5-14.5); WBC 11.95 10*3/uL (4.50-10.00)
[2025-02-11] MEDS: SODIUM CHLORIDE 0.9% 1,000 ML IV STA (12:39)
[2025-02-11] MEDS: FAMOTIDINE 20 MG/2 ML VIAL IV STA (12:40)
[2025-02-11] MEDS: ACETAMINOPHEN TAB 325 MG TAB PO STA (12:41)
[2025-02-11 12:51] LABS: ALT 14 U/L (4-34); AST 19 U/L (14-36); African American GFR (CKD) >90 (>60 ml/min/1.73 sqM); Albumin 3.9 g/dL (3.5-5.0); Alkaline Phosphatase 90 U/L (38-126); Anion Gap 9 mmol/L; Blood Urea Nitrogen 7 mg/dL (7-17); Calcium 9.3 mg/dL (8.4-10.2); Carbon Dioxide 21 mmol/L (22-30); Chloride 103 mmol/L (98-107); Glucose 82 mg/dL (74-99); Lipase 114 U/L (23-300); Magnesium 1.6 mg/dL (1.6-2.3); Non-African American GFR(CKD) >90 (>60 ml/min/1.73 sqM); Potassium 4.1 mmol/L (3.5-5.1); Sodium 133 mmol/L (137-145); Total Bilirubin 0.5 mg/dL (0.2-1.3); Total Protein 6.8 g/dL (6.3-8.2)
[2025-02-11 12:57] LABS: INR 0.8 (<1.2); Partial Thromboplastin Time 22.2 sec (22.0-30.0); Prothrombin Time 9.7 sec (10.0-12.5)
[2025-02-11 12:59] LABS: NT-Pro-B-Type Natriuretic Pept <20 pg/mL
[2025-02-11 13:48] LABS: Appearance,Urine Clear (Clear); Bilirubin,Urine Negative (Negative); Blood,Urine Negative (Negative); Color,Urine Colorless; Glucose,Urine (UA) Negative (Negative); Ketones,Urine 1+ (Negative); Leukocyte Esterase,Urine Negative (Negative); Nitrite,Urine Negative (Negative); PH, Urine 7.5 (5.0-8.0); Protein,Urine Negative (Negative); Specific Gravity,Urine 1.009 (1.001-1.035); Urobilinogen,Urine <2.0 mg/dL (<2.0)
[2025-02-11] MEDS: SODIUM CHLORIDE 0.9% 1,000 ML IV SCH (14:02)
--- NOTE | 2025-02-11 14:17 | XR ---
EXAMINATION TYPE: XR chest 1V portable DATE OF EXAM: 02/11/2025 2:14 PM COMPARISON: 06/12/2012 CLINICAL INDICATION: Female, 29 years old with history of substernal/epigastric pain, TECHNIQUE: Single frontal view of the chest is obtained. FINDINGS: There is no focal air space opacity, pleural effusion, or pneumothorax seen. The cardiac silhouette size is within normal limits. The osseous structures are intact. IMPRESSION: No acute process. [facility], , 02/11/2025 2:15 PM
[2025-02-11] MEDS: LORazepam 0.5 MG TAB PO STA (14:46)
--- NOTE | 2025-02-11 15:07 | ED ---
General Adult HPI - General Chief complaint: Chest Pain Stated complaint: chest pain Time Seen by Provider: 02/11/25 12:15 Source: patient, RN notes reviewed, old records reviewed Mode of arrival: wheelchair Limitations: no limitations - History of Present Illness Initial comments: Patient is a 21-year-old female presents emergency department complaining of chest pain. She is also complaining of intermittent lightheadedness. Symptoms all started approximately 11 AM this morning. She is 30 weeks . States the pain was more of a sharp sensation located over the inferior aspect of her sternum. Denies any radiation of the pain. States she felt slightly short of breath and was feeling like she was possibly going to pass out seeing floaters when the pain was present. Patient is G4, P3. She is currently 30 weeks as stated above. Follows up with Dr. Irvin Hardy. No significant past medical history other than asthma. She denies any abdominal pain, nausea, vomiting. Denies any vaginal discharge or bleeding. Does endorse a history of anxiety. No cardiac history. Presents for further evaluation at this time. States she is not extremely symptomatic at this time but was just prior to arrival. Presents for further evaluation at this time. Denies any recent long distance travel. Denies any lower extremity swelling. - Related Data Home Medications Medication Instructions Recorded Confirmed Vit No.179/Iron/Folic 1 tab PO DAILY 11/11/24 02/11/25 [ Tablet] Allergies Allergy/AdvReac Type Severity Reaction Status Date / Time Penicillins Allergy Rash/Hives Verified 02/11/25 14:49 Review of Systems ROS Statement: Those systems with pertinent positive or pertinent negative responses have been documented in the HPI. Review of Systems: CONST: Denies fever EYES: Denies blurry vision ENT: Denies nasal congestion C/V: Endorses chest pain that is intermittent RESP: Denies shortness of breath GI: Denies abdominal pain : Denies dysuria SKIN: Denies rash. MSK: Denies joint pain. NEURO: Denies headache ROS Other: All systems not noted in ROS Statement are negative. Past Medical History Past Medical History: Asthma Additional Past Medical History / Comment(s): Maternal tachycardia (negative evaluation). History of anxiety/depression. History of Any Multi-Drug Resistant Organisms: None Reported Past Surgical History: No Surgical Hx Reported Additional Past Surgical History / Comment(s): wisdom teeth removed Past Anesthesia/Blood Transfusion Reactions: No Reported Reaction Past Psychological History: Anxiety, Depression, PTSD Smoking Status: Never smoker Past Alcohol Use History: None Reported Past Drug Use History: None Reported - Past Family History Mother Family Medical History: No Reported History General Exam - General Exam Comments Initial Comments: General: Appears anxious HEAD: Normal with no signs of head trauma. EYES: PERRLA, EOMI, conjunctiva normal, no discharge. ENT: Hearing grossly intact, normal oropharynx. RESPIRATORY: Clear breath sounds bilaterally. No wheezes, rales, or rhonchi. C/V: Regular rate and rhythm. S1 and S2 auscultated, no edema, peripheral pulses 2+ and intact throughout. Chest pain is not reproducible on palpation. ABD: Gravid uterus. Abdomen is otherwise soft, nontender to palpation. No obvious epigastric tenderness to palpation. No right upper quadrant tenderness to palpation. EXT: Normal range of motion, no obvious deformity SKIN: No rashes or lesions observed on exposed skin. NEURO: Alert and oriented x 4. Limitations: no limitations Course Vital Signs 02/11/25 02/11/25 02/11/25 12:02 12:48 13:37 Temperature 98.0 F Pulse Rate 99 91 82 Pulse Rate [ Director Client Services ] Respiratory 18 18 20 Rate Blood Pressure 123/84 119/75 123/73 Blood Pressure [Left Arm Sitting] Blood Pressure [Left Arm Standing] Blood Pressure [Left Arm Supine] O2 Sat by Pulse 100 100 100 Oximetry 02/11/25 02/11/25 02/11/25 14:58 16:03 16:04 Temperature Pulse Rate 98 Pulse Rate [ 86 96 Director Client Services ] Respiratory 20 18 Rate Blood Pressure 117/72 Blood Pressure 117/67 [Left Arm Sitting] Blood Pressure [Left Arm Standing] Blood Pressure 106/64 [Left Arm Supine] O2 Sat by Pulse 98 98 Oximetry 02/11/25 02/11/25 02/11/25 16:05 18:33 19:43 Temperature Pulse Rate 108 H 95 Pulse Rate [ 105 H Director Client Services ] Respiratory 18 18 18 Rate Blood Pressure 118/84 95/61 Blood Pressure [Left Arm Sitting] Blood Pressure 114/73 [Left Arm Standing] Blood Pressure [Left Arm Supine] O2 Sat by Pulse 98 98 Oximetry Medical Decision Making - Medical Decision Making Was pt. sent in by a medical professional or institution (, PA, RETAIL MERCHANDISER TECHNICIAN, urgent care, hospital, or halfway...) When possible be specific @ -No Did you speak to anyone other than the patient for history (EMS, parent, family, police, friend...)? What history was obtained from this source @ -No Did you review nursing and triage notes (agree or disagree)? Why? @ -I reviewed and agree with nursing and triage notes Were old charts reviewed (outside hosp., previous admission, EMS record, old EKG, old radiological studies, urgent care reports/EKG's, halfway records)? Report findings @ -No old charts were reviewed Differential Diagnosis (chest pain, altered mental status, abdominal pain women, abdominal pain men, vaginal bleeding, weakness, fever, dyspnea, syncope, headache, dizziness, GI bleed, back pain, seizure, CVA, palpatations, mental health, musculoskeletal)? @ -Differential Chest Pain: Stable Angina, Unstable Angina, STEMI, NSTEMI Aortic Dissection, Pneumothorax, Musculoskeletal, Esophageal Spasm GERD, Cholecystitis, Pancreatitis, Zoster, this is not meant to be an all-inclusive list. EKG interpreted by me (3pts min.). @ -As above X-rays interpreted by me (1pt min.). @ -X-ray shows no obvious acute cardiopulmonary process. CT interpreted by me (1pt min.). @ -None done U/S interpreted by me (1pt. min.). @ -Gallbladder ultrasound unremarkable. Ultrasound of the bilateral lower extr emities negative for DVT. What testing was considered but not performed or refused? (CT, X-rays, U/S, labs)? Why? @ -Considered CT PE however patient is . I would like to avoid CT imaging at this time if possible. I do still have low suspicion for pulmonary embolism, and we will instead obtain VQ scan which patient was in agreement with. GRAIN OILSEED OR PASTURE FARM WORKER Dr. Martinez was also in agreement with this plan. What meds were considered but not given or refused? Why? @ -Considered initiating heparin therapy due to the elevated D-dimer as well as mild concern for PE however risks outweighed benefits. I did discuss this with the patient who was in agreement with holding until findings of VQ scan were obtained. No evidence of DVT at this point. Did you discuss the management of the patient with other professionals (professionals i.e. , PA, RETAIL MERCHANDISER TECHNICIAN, lab, RT, psych nurse, social insurance administrator, brake liner, teacher, correctional officer sergeant, patient case manager)? Give summary @ -Discussed with GRAIN OILSEED OR PASTURE FARM WORKER on-call Dr. Martinez who accepted the consult. Was in agreement with plan for VQ scan to evaluate for possible PE considering the elevated D-dimer. Discussed with Dr. Santacruz who accepted the admission. Was smoking cessation discussed for >3mins.? @ -No Was critical care preformed (if so, how long)? @ -Yes, 42 minutes Were there social determinants of health that impacted care today? How? (Homelessness, low income, unemployed, alcoholism, drug addiction, transportation, low edu. Level, literacy, decrease access to med. care, [facility], rehab)? @ -No Was there de-escalation of care discussed even if they declined (Discuss DNR or withdrawal of care, Hospice)? DNR status @ -No What co-morbidities impacted this encounter? (DM, HTN, Smoking, COPD, CAD, Cancer, CVA, ARF, Chemo, Hep., AIDS, mental health diagnosis, sleep apnea, morbid obesity)? @ -Currently 30 weeks Was patient admitted / discharged? Hospital course, mention meds given and route, prescriptions, significant lab abnormalities, going to OR and other pertinent info. @ -Based on patient's presentation and physical exam, presents with atypical chest pain with lightheadedness and near syncope it sounds like. She is currently 30 weeks . Initially I discussed with the patient we will obtain cardiac workup. Will hold off on a D-dimer at this time until initial labs are returned. She was in agreement this plan. I still have low suspicion for PE. Given IV fluids as well as Tylenol. EKG x 2 shows no obvious acute ischemic findings. Laboratory studies are remarkable for a mild leukocytosis of 11.9 which is likely reactive. D-dimer is elevated to 1.98 on second round of labs. Troponin is undetectable. Urinalysis unremarkable. TSH within normal limits. Chest x-ray showed no obvious acute cardiopulmonary process, gallbladder ultrasound negative for any obvious acute process. I discussed the results of the initial workup which showed no obvious acute findings. D-dimer was added on and was positive. Based on the DiPEP study, I have low suspicion for PE and so far the remainder the workup is unremarkable except for the elevated D-dimer. Therefore we will obtain venous duplex ultrasounds of the lower extremities as well as a VQ scan. I did discuss this with the on-call GRAIN OILSEED OR PASTURE FARM WORKER Dr. Martinez who agreed with this plan. Venous duplex ultrasounds negative for DVT. At this time, patient is resting comfortably. Vitals are within acceptable limits. She was in agreement with plan for admission for cardiology evaluation, VQ scan, as well as echo. Will trend the troponin. She was in agreement this plan. I did consider empirically starting heparin therapy however due to my low suspicion for PE, no evidence of DVT, as well as the fact that the patient is 30 weeks , I do believe at this time as the patient has no evidence of right heart strain or respiratory distress with normal vitals that initiating he iggy is outweighed by the risks. Risks outweigh benefits. Will hold for this time. She was in agreement this plan. I spoke with the admitting provider, Dr. Santacruz who accepted the admission. VQ scan did return after patient was admitted and was negative for any evidence of PE. I did discuss this with the patient and updated her. Undiagnosed new problem with uncertain prognosis? @ -No Drug Therapy requiring intensive monitoring for toxicity (Heparin, Nitro, Insulin, Cardizem)? @ -No Were any procedures done? @ -No Diagnosis/symptom? @ -Atypical chest pain, lightheadedness/near syncope in the setting of being 30 weeks Acute, or Chronic, or Acute on Chronic? @ -Acute Uncomplicated (without systemic symptoms) or Complicated (systemic symptoms)? @ -Complicated Side effects of treatment? @ -No Exacerbation, Progression, or Severe Exacerbation? @ -No Poses a threat to life or bodily function? How? (Chest pain, [place], [place], pneumonia, PE, COPD, DKA, ARF, appy, cholecystitis, CVA, Diverticulitis, Homicidal, Suicidal, threat to staff... and all critical care pts) @ -Yes - Lab Data Result diagrams: 02/11/25 12:27 02/11/25 12:27 Lab Results 02/11/25 02/11/25 02/11/25 Range/Units 12:27 12: 12: WBC 11.95 H (4.50-10.00) 10*3/uL RBC 3.85 L (4.10-5.20) 10*6/uL Hgb 12.2 (12.0-15.0) g/dL Hct 34.2 L (37.2-46.3) % MCV 88.8 (80.0-97.0) fL MCH 31.7 (27.0-32.0) pg MCHC 35.7 (32.0-37.0) g/dL Plt Count 217 (140-440) 10*3/uL MPV 9.9 (9.5-12.2) fL Immature Gran % (Auto) 1.4 % Neutrophils % 73.2 % Lymphocytes % 17.2 % Monocytes % 6.4 % Eosinophils % 1.5 % Basophils % 0.3 % Immature Gran # 0.17 H (0.00-0.04) 10*3/uL Neutrophils # 8.74 H (1.80-7.70) 10*3/uL Lymphocytes # 2.06 (0.90-5.00) 10*3/uL Monocytes # 0.76 (0.20-1.00) 10*3/uL Eosinophils # 0.18 (0.04-0.35) 10*3/uL Basophils # 0.04 (0.00-0.10) 10*3/uL PT 9.7 L (10.0-12.5) sec INR 0.8 (<1.2) APTT 22.2 (22.0-30.0) sec D-Dimer (<0.60) mg/L FEU Sodium 133 L (137-145) mmol/L Potassium 4.1 (3.5-5.1) mmol/L Chloride 103 (98-107) mmol/L Carbon Dioxide 21 L (22-30) mmol/L Anion Gap 9 mmol/L BUN 7 (7-17) mg/dL Creatinine 0.43 L (0.52-1.04) mg/dL Est GFR (CKD-EPI)AfAm >90 (>60 ml/min/1.73 sqM) Est GFR (CKD-EPI)NonAf >90 (>60 ml/min/1.73 sqM) Glucose 82 (74-99) mg/dL Calcium 9.3 (8.4-10.2) mg/dL Magnesium 1.6 (1.6-2.3) mg/dL Total Bilirubin 0.5 (0.2-1.3) mg/dL AST 19 (14-36) U/L ALT 14 (4-34) U/L Alkaline Phosphatase 90 (38-126) U/L Troponin I (0.000-0.034) ng/mL NT-Pro-B Natriuret Pep <20 pg/mL Total Protein 6.8 (6.3-8.2) g/dL Albumin 3.9 (3.5-5.0) g/dL Lipase 114 (23-300) U/L TSH (0.465-4.680) mIU/L Urine Color Urine Appearance (Clear) Urine pH (5.0-8.0) Ur Specific Tilly (1.001-1.035) Urine Protein (Negative) Urine Glucose (UA) (Negative) Urine Ketones (Negative) Urine Blood (Negative) Urine Nitrite (Negative) Urine Bilirubin (Negative) Urine Urobilinogen (<2.0) mg/dL Ur Leukocyte Esterase (Negative) 02/11/25 02/11/25 02/11/25 Range/Units 12:27 12:27 12:27 WBC (4.50-10.00) 10*3/uL RBC (4.10-5.20) 10*6/uL Hgb (12.0-15.0) g/dL Hct (37.2-46.3) % MCV (80.0-97.0) fL MCH (27.0-32.0) pg MCHC (32.0-37.0) g/dL Plt Count (140-440) 10*3/uL MPV (9.5-12.2) fL Immature Gran % (Auto) % Neutrophils % % Lymphocytes % % Monocytes % % Eosinophils % % Basophils % % Immature Gran # (0.00-0.04) 10*3/uL Neutrophils # (1.80-7.70) 10*3/uL Lymphocytes # (0.90-5.00) 10*3/uL Monocytes # (0.20-1.00) 10*3/uL Eosinophils # (0.04-0.35) 10*3/uL Basophils # (0.00-0.10) 10*3/uL PT (10.0-12.5) sec INR (<1.2) APTT (22.0-30.0) sec D-Dimer 1.98 H (<0.60) mg/L FEU Sodium (137-145) mmol/L Potassium (3.5-5.1) mmol/L Chloride (98-107) mmol/L Carbon Dioxide (22-30) mmol/L Anion Gap mmol/L BUN (7-17) mg/dL Creatinine (0.52-1.04) mg/dL Est GFR (CKD-EPI)AfAm (>60 ml/min/1.73 sqM) Est GFR (CKD-EPI)NonAf (>60 ml/min/1.73 sqM) Glucose (74-99) mg/dL Calcium (8.4-10.2) mg/dL Magnesium (1.6-2.3) mg/dL Total Bilirubin (0.2-1.3) mg/dL AST (14-36) U/L ALT (4-34) U/L Alkaline Phosphatase (38-126) U/L Troponin I <0.012 (0.000-0.034) ng/mL NT-Pro-B Natriuret Pep pg/mL Total Protein (6.3-8.2) g/dL Albumin (3.5-5.0) g/dL Lipase (23-300) U/L TSH 0.643 (0.465-4.680) mIU/L Urine Color Urine Appearance (Clear) Urine pH (5.0-8.0) Ur Specific [place]illy (1.001-1.035) Urine Protein (Negative) Urine Glucose (UA) (Negative) Urine Ketones (Negative) Urine Blood (Negative) Urine Nitrite (Negative) Urine Bilirubin (Negative) Urine Urobilinogen (<2.0) mg/dL Ur Leukocyte Esterase (Negative) 02/11/25 Range/Units 13:36 WBC (4.50-10.00) 10*3/uL RBC (4.10-5.20) 10*6/uL Hgb (12.0-15.0) g/dL Hct (37.2-46.3) % MCV (80.0-97.0) fL MCH (27.0-32.0) pg MCHC (32.0-37.0) g/dL Plt Count (140-440) 10*3/uL MPV (9.5-12.2) fL Immature Gran % (Auto) % Neutrophils % % Lymphocytes % % Monocytes % % Eosinophils % % Basophils % % Immature Gran # (0.00-0.04) 10*3/uL Neutrophils # (1.80-7.70) 10*3/uL Lymphocytes # (0.90-5.00) 10*3/uL Monocytes # (0.20-1.00) 10*3/uL Eosinophils # (0.04-0.35) 10*3/uL Basophils # (0.00-0.10) 10*3/uL PT (10.0-12.5) sec INR (<1.2) APTT (22.0-30.0) sec D-Dimer (<0.60) mg/L FEU Sodium (137-145) mmol/L Potassium (3.5-5.1) mmol/L Chloride (98-107) mmol/L Carbon Dioxide (22-30) mmol/L Anion Gap mmol/L BUN (7-17) mg/dL Creatinine (0.52-1.04) mg/dL Est GFR (CKD-EPI)AfAm (>60 ml/min/1.73 sqM) Est GFR (CKD-EPI)NonAf (>60 ml/min/1.73 sqM) Glucose (74-99) mg/dL Calcium (8.4-10.2) mg/dL Magnesium (1.6-2.3) mg/dL Total Bilirubin (0.2-1.3) mg/dL AST (14-36) U/L ALT (4-34) U/L Alkaline Phosphatase (38-126) U/L Troponin I (0.000-0.034) ng/mL NT-Pro-B Natriuret Pep pg/mL Total Protein (6.3-8.2) g/dL Albumin (3.5-5.0) g/dL Lipase (23-300) U/L TSH (0.465-4.680) mIU/L Urine Color Colorless Urine Appearance Clear (Clear) Urine pH 7.5 (5.0-8.0) Ur Specific Tilly 1.009 (1.001-1.035) Urine Protein Negative (Negative) Urine Glucose (UA) Negative (Negative) Urine Ketones 1+ H (Negative) Urine Blood Negative (Negative) Urine Nitrite Negative (Negative) Urine Bilirubin Negative (Negative) Urine Urobilinogen <2.0 (<2.0) mg/dL Ur Leukocyte Esterase Negative (Negative) - EKG Data -: EKG Interpreted by Me EKG Comments: 12-lead Electrocardiogram Interpretation Note EKG was reviewed and interpreted by myself. 12-lead ECG performed at 1214 is interpreted by me as revealing normal sinus rhythm at a rate of 91 beats per minute. Incomplete right bundle branch block morphology [place] is normal. [place] interval is 128 ms, QRS duration is 104 ms, QTc is 417 ms. Non specific T wave inversions present.. There were no ST or T wave abnormalities to suggest myocardial ischemia or injury. R wave progression across the precordium was satisfactory. By my interpretation this EKG is non-diagnostic for acute ischemia. 12-lead Electrocardiogram Interpretation Note EKG was reviewed and interpreted by myself. 12-lead ECG performed at 1300 is interpreted by me as revealing normal sinus rhythm at a rate of 92 beats per minute. [place] is normal. [place] interval is 135 ms, QRS durations 113 ms, QTc is 433 ms. Patient has a nonspecific T wave abnormalities once again redemonstrated. Incomplete right bundle branch block morphology present.. There were no ST or T wave abnormalities to suggest myocardial ischemia or injury. R wave progression across the precordium was satisfactory. By my interpretation this EKG is non-diagnostic for acute ischemia. No significant dynamic change when compared with EKG from earlier. Critical Care Time Critical Care Time: Yes Total Critical Care Time: 42 Disposition Clinical Impression: Atypical chest pain, Near syncope, Lightheadedness, 30 weeks gestation of pregn [place]ton Disposition: ADMITTED IP TO THIS HOSP Condition: Stable Time of Disposition: 15:25
--- NOTE | 2025-02-11 15:10 | US ---
EXAMINATION TYPE: US venous doppler duplex LE BI DATE OF EXAM: 02/11/2025 3:02 PM COMPARISON: NONE CLINICAL INDICATION: Female, 29 years old with history of eval for DVT; Elevated D-dimer, pt is appro x 29 weeks , Pain TECHNIQUE: The lower extremity deep venous system is examined utilizing real time linear array sonog papito with graded compression, color doppler sonography, and spectral doppler. SIDE PERFORMED: Bilateral FINDINGS: VESSELS IMAGED: Common Femoral Vein Deep Femoral Vein Greater Saphenous Vein * Femoral Vein Popliteal Vein Small Saphenous Vein * Proximal Calf Veins (* superficial vessels) Right Leg: Negative for DVT, Color Doppler imaging shows patency of the vessels. Spectral waveforms are within normal limits. Left Leg: Negative for DVT, Color Doppler imaging shows patency of the vessels. Spectral waveforms a re within normal limits. IMPRESSION: No evidence for DVT within the bilateral lower extremities imaged from the groin to the upper calves. [facility], Workstation: [email or web address], 02/11/2025 3:07 PM
[2025-02-11] MEDS ORDERED: ACETAMINOPHEN TAB 325 MG TAB PO PRN (15:12)
[2025-02-11] MEDS ORDERED: NALOXONE 0.4 MG/ML 1 ML VIAL IV PRN (15:12)
[2025-02-11] MEDS ORDERED: ONDANSETRON 4 MG/2 ML VIAL IVP PRN (15:12)
--- NOTE | 2025-02-11 15:12 | US ---
EXAMINATION TYPE: US gallbladder DATE OF EXAM: 02/11/2025 COMPARISON: NONE CLINICAL INDICATION: Female, 29 years old with history of epigastric pain; Epigastric pain TECHNIQUE: Grayscale and color Doppler imaging of the right upper quadrant was performed. FINDINGS: EXAM MEASUREMENTS: Liver Length: 16.4 cm Gallbladder Wall: 0.2 cm CBD: 0.2 cm Right Kidney: 12.1 x 4.7 x 5.2 cm Pancreas: Obscured by bowel gas Liver: Visualized portions appeared wnl Gallbladder: wnl Evidence for sonographic Maher's sign: No CBD: wnl Right Kidney: Mild pelvis dilation= 1.0 cm- pt is approx 29 weeks IMPRESSION: 1. Right kidney shows mild pelviectasis versus an extrarenal pelvis. No calyceal dilatation to sugges t hydronephrosis. 2. No gallstones or biliary ductal dilatation. [facility], Workstation: [email or web address], 02/11/2025 3:10 PM
--- NOTE | 2025-02-11 17:54 | CA ---
Transthoracic Echo Report Name: Brynn De Dios Age: 29 Gender: F : 1995 Exam Date: 02/11/2025 16:07 Exam Location: [facility] Echo Ht (in): 63 Wt (lb): 160 Ordering Physician: Fortino Garcia MD Attending/Referring Phys: Reconnaissance Man Mena Bustos RDCS Procedure CPT: Indications: chest pain, near syncope Cardiac Hx: Technical Quality: Good Contrast 1: Total Dose (mL): Contrast 2: Total Dose (mL): MEASUREMENTS (Male / Female) Normal Values 2D ECHO LV Diastolic Diameter PLAX 4.9 cm 4.2 - 5.9 / 3.9 - 5.3 cm LV Systolic Diameter PLAX 3.4 cm IVS Diastolic Thickness 1.0 cm 0.6 - 1.0 / 0.6 - 0.9 cm LVPW Diastolic Thickness 0.8 cm 0.6 - 1.0 / 0.6 - 0.9 cm LV Relative Wall Thickness 0.4 LVOT Diameter 2.0 cm LV Diastolic Volume MOD BP 127.8 cm??? 67 - 155 / 56 - 104 cm??? LV Systolic Volume MOD BP 46.3 cm??? 22 - 58 / 19 - 49 cm??? LV Ejection Fraction MOD BP 63.7 % >= 55 % LV Cardiac Index MOD BP 4167.6 cm???/min???m??? LV Diastolic Volume MOD 4C 132.9 cm??? LV Systolic Volume MOD 4C 53.9 cm??? LV Ejection Fraction MOD 4C 59.4 % LV Cardiac Index MOD 4C 4041.6 cm???/min???m??? LV Diastolic Length 4C 8.8 cm LV Systolic Length 4C 7.4 cm LV Diastolic Volume MOD 2C 121.4 cm??? LV Systolic Volume MOD 2C 34.6 cm??? LV Ejection Fraction MOD 2C 71.5 % LV Cardiac Index MOD 2C 4439.6 cm???/min???m??? LV Diastolic Length 2C 8.7 cm LV Systolic Length 2C 6.4 cm LA Volume 37.7 cm??? 18 - 58 / 22 - 52 cm??? LA Volume Index 20.8 cm???/m??? 16 - 28 cm???/m??? DOPPLER AV Peak Velocity 156.3 cm/s AV Peak Gradient 9.8 mmHg AV Mean Velocity 108.6 cm/s AV Mean Gradient 5.2 mmHg AV Velocity Time Integral 27.1 cm LVOT Peak Velocity 134.5 cm/s LVOT Peak Gradient 7.2 mmHg LVOT Velocity Time Integral 26.2 cm LVOT Stroke Volume 84.1 cm??? LVOT Stroke Volume Index 47.8 ml/m??? LVOT Cardiac Index 4302.6 cm???/min???m??? AV Area Cont Eq vti 3.1 cm??? AV Area Cont Eq pk 2.8 cm??? MV Area PHT 6.0 cm??? Mitral E Point Velocity 76.2 cm/s Mitral A Point Velocity 74.3 cm/s Mitral E to A Ratio 1.0 MV Deceleration Time 127.0 ms TR Peak Velocity 228.1 cm/s TR Peak Gradient 20.8 mmHg Right Atrial Pressure 5.0 mmHg Pulmonary Artery Systolic Pressu 25.8 mmHg Right Ventricular Systolic Press 25.8 mmHg PV Peak Velocity 92.5 cm/s PV Peak Gradient 3.4 mmHg FINDINGS Left Ventricle Left ventricular ejection fraction is estimated at 55-60 %. Mildly increased septal wall thickness. Moderately increased left ventricular diastolic volume. No obvious regional wall motion abnormalities. Right Ventricle Normal right ventricular size and function. Right ventricular systolic pressure within normal limits. Right Atrium Normal right atrial size. Left Atrium Normal left atrial size. Mitral Valve Structurally normal mitral valve. No evidence for mitral valve prolapse. No mitral stenosis. Trace mitral regurgitation. Aortic Valve Trileaflet aortic valve. No aortic valve stenosis or regurgitation. Tricuspid Valve Structurally normal tricuspid valve. No tricuspid stenosis. Mild tricuspid regurgitation. Pulmonic Valve Structurally normal pulmonic valve. No pulmonic stenosis. Trace pulmonic regurgitation. Pericardium No pericardial effusion. Aorta Normal size aortic root and proximal ascending aorta. CONCLUSIONS Left ventricular ejection fraction 55 to 60% Trace mitral regurgitation Mild tricuspid regurgitation No pericardial effusion Previewed by: Dr. Jones Payne DO (Electronically Signed) Final Date: 11 Feb 2025 17:53
--- NOTE | 2025-02-11 19:06 | NM ---
EXAMINATION TYPE: NM pul perfusion DATE OF EXAM: 02/11/2025 COMPARISON: Plain film same day. CLINICAL INDICATION: Female, 29 years old with history of shortness of breath. Feeling unwell Following administration of 3.2 mCi Tc 99m MAA. Images obtained post injection. FINDINGS: Limited frontal anterior and posterior views of the chest. No wedge-shaped defects identified. IMPRESSION: No evidence for pulmonary embolus. [facility], , 02/11/2025 7:04 PM
[2025-02-12 07:28] VITALS: BP 107/70; PULSE 75; RESP 16; TEMP 98.3
--- NOTE | 2025-02-12 08:56 | P.CRDCN ---
History of Present Illness Consult date: 02/12/25 Reason for Consult (text): Chest pain, 30 weeks near syncope History of present illness: This is a 29-year-old female previously seen in the office by Dr. Moore in 2019 for atypical chest pain and palpitations. We have been asked to evaluate the patient for chest pain, 30 weeks and near syncope. Patient states that she developed chest pain with a sharp sensation in the lower sternal area. No radiation of the pain. She was also having intermittent lightheadedness. No abdominal pain, no nausea or vomiting. She has had no lower extremity edema. Blood pressure 107/70, heart rate 75, pulse ox 100% on room air. -EKG: Sinus rhythm with no acute ST-T wave changes. -Venous duplex of the bilateral lower extremities negative for DVT. -VQ scan showed no evidence of pulmonary embolism. -Laboratory studies: WBC 11.9, hemoglobin 12.2, D-dimer 1.98. Creatinine 0.43, potassium 4.1, troponins negative x 3. proBNP less than 20, TSH 0.643. -Home cardiac medications: None -Echocardiogram performed on this admission reveals EF 55 to 60%, trace mitral Gertsch Tatian, mild tricuspid regurgitation. Review Of Systems: At the time of my exam: CONSTITUTIONAL: Denies fever or chills. HEENT: Denies blurred vision, vision changes, or eye pain. Denies hemoptysis CARDIOVASCULAR: Denies chest pain. Denies orthopnea. Denies PND. Denies palpitations RESPIRATORY: Denies shortness of breath. GASTROINTESTINAL: Denies abdominal pain. Denies nausea or vomiting. HEMATOLOGIC: Denies bleeding disorders. GENITOURINARY: Denies any blood in urine. SKIN: Denies puritis. Denies rash. Physical examination: Gen: This is a 29-year-old female in no acute distress VS: reviewed HEENT: Head is atraumatic, normocephalic. Pupils equal, round. Sclerae is anicteric. NECK: Supple. No JVD. LUNGS: Clear to auscultation. No wheezes or rhonchi. No intercostal retractions. HEART: Regular rate and rhythm. No murmur. ABDOMEN: Soft No tenderness. EXTREMITIES: No pedal edema. No calf tenderness. NEUROLOGICAL: Patient is awake, alert and oriented x3. Assessment: Atypical chest pain, acute coronary syndrome ruled out Elevated D-dimer, PE ruled out by VQ scan 30 weeks Lightheadedness Symptoms most likely due to inotropic changes that occur with Plan: Patient is cleared for discharge from cardiology and may follow-up with Dr. Lavern Louis in the office and 4 weeks Thank you kindly for this consultation. Nurse practitioner note has been reviewed, I agree with documented findings and plan of care. Patient was seen and examined. Past Medical History Past Medical History: Asthma Additional Past Medical History / Comment(s): Maternal tachycardia (negative evaluation). History of anxiety/depression. IBS. has 3 children at home. History of Any Multi-Drug Resistant Organisms: None Reported Past Surgical History: No Surgical Hx Reported Additional Past Surgical History / Comment(s): wisdom teeth removed, colonoscopy Past Anesthesia/Blood Transfusion Reactions: No Reported Reaction Past Psychological History: Anxiety, Depression, PTSD Additional Psychological History / Comment(s): not currently medicated Smoking Status: Never smoker Past Alcohol Use History: None Reported Past Drug Use History: None Reported - Past Family History Mother Family Medical History: No Reported History Medications and Allergies Home Medications Medication Instructions Recorded Confirmed Type Vit No.179/Iron/Folic 1 tab PO DAILY 11/11/24 02/11/25 History [ Tablet] Allergies Allergy/AdvReac Type Severity Reaction Status Date / Time Penicillins Allergy Rash/Hives Verified 02/11/25 14:49 Physical Exam Vitals: Vital Signs Temp Pulse Pulse Pulse Resp BP BP 02/12/25 07:00 98.3 F 75 16 02/12/25 01:56 97.9 F 83 02/11/25 21:11 82 17 115/65 02/11/25 20:00 97.6 F 87 97/62 02/11/25 19:43 95 18 95/61 02/11/25 18:33 108 H 18 118/84 02/11/25 16:05 105 H 18 02/11/25 16:04 96 18 117/67 02/11/25 16:03 86 02/11/25 14:58 98 20 117/72 02/11/25 13:37 82 20 123/73 02/11/25 12:48 91 18 119/75 02/11/25 12:02 98.0 F 99 18 123/84 BP BP BP Pulse Ox 02/12/25 07:00 107/70 100 05/03/25 01:56 100/65 98 02/11/25 21:11 99 02/11/25 20:00 99 02/11/25 19:43 02/11/25 18:33 98 02/11/25 16:05 114/73 98 02/11/25 16:04 98 02/11/25 16:03 106/64 02/11/25 14:58 98 02/11/25 13:37 100 02/11/25 12:48 100 02/11/25 12:02 100 Intake and Output 02/11/25 02/12/25 02/12/25 22:59 06:59 14:59 Other: # Voids 1 1 Weight 72.575 kg Results 02/11/25 12:27 02/11/25 12:27 Cardiac Enzymes 02/11/25 02/11/25 02/11/25 Range/Units 12:27 12:27 15:38 AST 19 (14-36) U/L Troponin I <0.012 <0.012 (0.000-0.034) ng/mL 02/11/25 Range/Units 18:35 AST (14-36) U/L Troponin I <0.012 (0.000-0.034) ng/mL Coagulation 02/11/25 Range/Units 12:27 PT 9.7 L (10.0-12.5) sec APTT 22.2 (22.0-30.0) sec CBC 02/11/25 Range/Units 12:27 WBC 11.95 H (4.50-10.00) 10*3/uL RBC 3.85 L (4.10-5.20) 10*6/uL Hgb 12.2 (12.0-15.0) g/dL Hct 34.2 L (37.2-46.3) % Plt Count 217 (140-440) 10*3/uL Comprehensive Metabolic Panel 02/11/25 Range/Units 12:27 Sodium 133 L (137-145) mmol/L Potassium 4.1 (3.5-5.1) mmol/L Chloride 103 (98-107) mmol/L Carbon Dioxide 21 L (22-30) mmol/L BUN 7 (7-17) mg/dL Creatinine 0.43 L (0.52-1.04) mg/dL Glucose 82 (74-99) mg/dL Calcium 9.3 (8.4-10.2) mg/dL AST 19 (14-36) U/L ALT 14 (4-34) U/L Alkaline Phosphatase 90 (38-126) U/L Total Protein 6.8 (6.3-8.2) g/dL Albumin 3.9 (3.5-5.0) g/dL Current Medications Generic Name Dose Route Start Last Admin Trade Name Freq PRN Reason Stop Dose Admin Acetaminophen 650 mg 02/11/25 15:12 Acetaminophen Tab 325 Mg Tab PO Q6HR PRN Mild Pain or Fever > 100.5 Sodium Chloride 1,000 mls @ 100 mls/hr 02/11/25 13:45 02/11/25 22:29 Saline 0.9% IV 100 mls/hr .Q10H FELICE Administration Naloxone HCl 0.2 mg 02/11/25 15:12 Naloxone 0.4 Mg/Ml 1 Ml Vial IV Q2M PRN Opioid Reversal Ondansetron HCl 4 mg 02/11/25 15:12 Ondansetron 4 Mg/2 Ml Vial IVP Q8HR PRN Nausea And Vomiting Intake and Output 02/11/25 02/12/25 02/12/25 22:59 06:59 14:59 Other: # Voids 1 1 Weight 72.575 kg 02/11/25 12:27 02/11/25 12:27
[2025-02-12 10:05] LABS: Basophils # (A) 0.03 X 10*3/uL (0.00-0.10); Basophils % (A) 0.3 %; Eosinophils # (A) 0.21 X 10*3/uL (0.04-0.35); Eosinophils % (A) 2.2 %; HCT 31.8 % (37.2-46.3); HGB 10.5 g/dL (12.0-15.0); Lymphocytes # (A) 1.78 X 10*3/uL (0.90-5.00); Lymphocytes % (A) 18.8 %; MCH 30.8 pg (27.0-32.0); MCV 93.3 FL (80.0-97.0); Mean Platelet Volume 10.2 FL (9.5-12.2); Monocytes # (A) 0.68 X 10*3/uL (0.20-1.00); Monocytes % (A) 7.2 %; NRBC Per 100 WBC 0 X 10*3/uL (0.00-0.01); Neutrophils # (A) 6.66 X 10*3/uL (1.80-7.70); Neutrophils % (A) 70.3 %; Platelet Count 184 X 10*3/uL (140-440); RBC 3.41 X 10*6/uL (4.10-5.20); RDW 12.8 % (11.5-14.5); WBC 9.47 X 10*3/uL (4.50-10.00)
[2025-02-12 10:18] LABS: ALT 11 U/L (8-44); AST 14 U/L (13-35); Albumin 3.2 g/dL (3.8-4.9); Albumin/Globulin Ratio 1.52 Ratio (1.60-3.17); Alkaline Phosphatase 75 U/L (41-126); Blood Urea Nitrogen 5.5 mg/dL (9.0-27.0); Calcium 8.2 mg/dL (8.7-10.3); Carbon Dioxide 20.2 mmol/L (21.6-31.8); Chloride 109 mmol/L (96-109); Globulin 2.1 g/dL (1.6-3.3); Glucose 91 mg/dL (70-110); Potassium 4.2 mmol/L (3.5-5.5); Sodium 138 mmol/L (135-145); Total Bilirubin <0.2 mg/dL (0.3-1.2); Total Protein 5.3 g/dL (6.2-8.2)
--- NOTE | 2025-02-12 11:16 | P.OBCN ---
History of Present Illness Consult date: 02/11/25 Reason for consult: other () Chief complaint: chest pain, IUP at 30+ weeks History of present illness: 29-year-old 5 para 2-1-1-3 at 30+ weeks of , EDC of 714 based on last menstrual period and consistent with 15-week ultrasound. Patient does have a prior history of a delivery at 34 weeks. Patient presented to [facility] emergency department yesterday with complaints of atypical chest pain. Concerns for DVT/PE were noted and workup was completed. Patient has been seen by cardiology and cleared. Obstetrically patient has done well during her care. Patient does note good movement, she did have concerns for contractions yesterday fibronectin was obtained and negative. Cervix was noted be closed thick and high. monitoring has been obtained during her stay Patient has been cleared by cardiology and internal medicine service and discharge has been written. [employer] history 5 para 2-1-1-3 1. 2017 39 weeks 5# 2. 2018 39 weeks 6-4# 3. 2020 34 weeks 5-11 4. 2023 sab 5. current Review of Systems Constitutional: Denies chills, Denies fatigue, Denies fever Ears, nose, mouth and throat: Denies headache Cardiovascular: Reports chest pain Respiratory: Denies dyspnea Gastrointestinal: Denies nausea, Denies vomiting Genitourinary: Reports Past Medical History Past Medical History: Asthma Additional Past Medical History / Comment(s): Maternal tachycardia (negative evaluation). History of anxiety/depression. IBS. has 3 children at home. History of Any Multi-Drug Resistant Organisms: None Reported Past Surgical History: No Surgical Hx Reported Additional Past Surgical History / Comment(s): wisdom teeth removed, colonoscopy Past Anesthesia/Blood Transfusion Reactions: No Reported Reaction Past Psychological History: Anxiety, Depression, PTSD Additional Psychological History / Comment(s): not currently medicated Smoking Status: Never smoker Past Alcohol Use History: None Reported Past Drug Use History: None Reported - Past Family History Mother Family Medical History: No Reported History Medications and Allergies Home Medications Medication Instructions Recorded Confirmed Type Vit No.179/Iron/Folic 1 tab PO DAILY 11/11/24 02/11/25 History [ Tablet] Allergies Allergy/AdvReac Type Severity Reaction Status Date / Time Penicillins Allergy Rash/Hives Verified 02/11/25 14:49 Exam Osteopathic Statement: *. No significant issues noted on an osteopathic structural exam other than those noted in the History and Physical/Consult. Vital Signs Temp Pulse Pulse Pulse Resp BP BP 02/12/25 07:00 98.3 F 75 16 02/12/25 01:56 97.9 F 83 02/11/25 21:11 82 17 115/65 02/11/25 20:00 97.6 F 87 97/62 02/11/25 19:43 95 18 95/61 02/11/25 18:33 108 H 18 118/84 02/11/25 16:05 105 H 18 02/11/25 16:04 96 18 117/67 02/11/25 16:03 86 02/11/25 14:58 98 20 117/72 02/11/25 13:37 82 20 123/73 02/11/25 12:48 91 18 119/75 02/11/25 12:02 98.0 F 99 18 123/84 BP BP BP Pulse Ox 02/12/25 07:00 107/70 100 02/12/25 01:56 100/65 98 02/11/25 21:11 99 02/11/25 20:00 99 02/11/25 19:43 02/11/25 18:33 98 02/11/25 16:05 114/73 98 02/11/25 16:04 98 02/11/25 16:03 106/64 02/11/25 14:58 98 02/11/25 13:37 100 02/11/25 12:48 100 02/11/25 12:02 100 Intake and Output 02/11/25 02/12/25 02/12/25 22:59 06:59 14:59 Other: # Voids 1 1 Weight 72.575 kg Targeted physical exam is performed this date in general this is a well- nourished well-developed female resting comfortably in bed. Breathing appears nonlabored, abdomen appears gravid. monitoring to be obtained this afternoon. Reassuring for gestational age NST done around 230 this morning. Results Result Diagrams: 02/12/25 06:06 02/12/25 06:06 Abnormal Lab Results - Last 24 Hours (Table) 02/11/25 02/11/25 02/11/25 Range/Units 12:27 12:27 12:27 WBC 11.95 H (4.50-10.00) 10*3/uL RBC 3.85 L (4.10-5.20) 10*6/uL Hgb (12.0-15.0) g/dL Hct 34.2 L (37.2-46.3) % Immature Gran # 0.17 H (0.00-0.04) 10*3/uL Neutrophils # 8.74 H (1.80-7.70) 10*3/uL PT 9.7 L (10.0-12.5) sec D-Dimer (<0.60) mg/L FEU Sodium 133 L (137-145) mmol/L Carbon Dioxide 21 L (22-30) mmol/L BUN (9.0-27.0) mg/dL Creatinine 0.43 L (0.52-1.04) mg/dL BUN/Creatinine Ratio (12.00-20.00) Ratio Calcium (8.7-10.3) mg/dL Total Bilirubin (0.3-1.2) mg/dL Total Protein (6.2-8.2) g/dL Albumin (3.8-4.9) g/dL Albumin/Globulin Ratio (1.60-3.17) Ratio Urine Ketones (Negative) 02/11/25 02/11/25 02/12/25 Range/Units 12:27 13:36 06:06 WBC (4.50-10.00) 10*3/uL RBC 3.41 L (4.10-5.20) 10*6/uL Hgb 10.5 L (12.0-15.0) g/dL Hct 31.8 L (37.2-46.3) % Immature Gran # 0.11 H (0.00-0.04) 10*3/uL Neutrophils # (1.80-7.70) 10*3/uL PT (10.0-12.5) sec D-Dimer 1.98 H (<0.60) mg/L FEU Sodium (137-145) mmol/L Carbon Dioxide (22-30) mmol/L BUN (9.0-27.0) mg/dL Creatinine (0.52-1.04) mg/dL BUN/Creatinine Ratio (12.00-20.00) Ratio Calcium (8.7-10.3) mg/dL Total Bilirubin (0.3-1.2) mg/dL Total Protein (6.2-8.2) g/dL Albumin (3.8-4.9) g/dL Albumin/Globulin Ratio (1.60-3.17) Ratio Urine Ketones 1+ H (Negative) 02/12/25 Range/Units 06:06 WBC (4.50-10.00) 10*3/uL RBC (4.10-5.20) 10*6/uL Hgb (12.0-15.0) g/dL Hct (37.2-46.3) % Immature Gran # (0.00-0.04) 10*3/uL Neutrophils # (1.80-7.70) 10*3/uL PT (10.0-12.5) sec D-Dimer (<0.60) mg/L FEU Sodium (137-145) mmol/L Carbon Dioxide 20.2 L (22-30) mmol/L BUN 5.5 L (9.0-27.0) mg/dL Creatinine 0.5 L (0.52-1.04) mg/dL BUN/Creatinine Ratio 11.00 L (12.00-20.00) Ratio Calcium 8.2 L (8.7-10.3) mg/dL Total Bilirubin <0.2 L (0.3-1.2) mg/dL Total Protein 5.3 L (6.2-8.2) g/dL Albumin 3.2 L (3.8-4.9) g/dL Albumin/Globulin Ratio 1.52 L (1.60-3.17) Ratio Urine Ketones (Negative) Assessment and Plan (1) 30 weeks gestation of Current Visit: Yes Status: Acute Code(s): Z3A.30 - 30 WEEKS GESTATION OF SNOMED Code(s): 01844037 (2) Atypical chest pain Current Visit: Yes Status: Acute Code(s): R07.89 - OTHER CHEST PAIN SNOMED Code(s): 506244911 Plan: Obstetrically patient is stable, to continue routine care with Dr. Mann. Patient has been cleared by cardiology and internal medicine service and deemed stable for discharge. Follow-up as scheduled with OB.
--- NOTE | 2025-02-12 12:07 | P.HPIM ---
History of Present Illness H&P Date: 02/12/25 History of present illness; patient is a 29-year-old lady with no significant past medical history, 4 para 3 presents to the ER because of chest pain. Patient is currently 30 weeks . Patient stated she was already yesterday morning and started experiencing chest pain that was central in location,pressure-like, nonradiating, no aggravating or relieving factor associated with this chest pain. There was no complaint of orthopnea or PND. Patient did state that she felt short of breath at time There was no episode of diaphoresis during this episode of chest pain. She was complaining of lightheadedness at the time because of chest pain, patient came to the ER Initial lab work done in the ER showed WBC 11.95, hemoglobin 12.2, D-dimer 1.98, sodium 133, potassium 4.1, BUN 7, creatinine 0.43, troponin 0.012 UA negative for infection EKG done in the ER showed heart rate of 92, no ST segment elevation or depression seen, no T-wave inversions seen. Chest x-ray done in the ER showed no acute process Ultrasound gallbladder done showed right kidney shows mild pelvic ectasis versus an extrarenal pelvis, no calyceal dilatation to just hydronephrosis, no gallstones or bile duct dilatation Duplex ultrasound lower extremities negative for DVT Patient admitted to internal medicine service REVIEW OF SYSTEMS: CONSTITUTIONAL: No fever, no malaise, no fatigue. HEENT: No recent visual problems or hearing problems. Denied any sore throat. CARDIOVASCULAR: As mentioned above PULMONARY: As mentioned above GASTROINTESTINAL: No diarrhea, no nausea, no vomiting, no abdominal pain. NEUROLOGICAL: No headaches, no weakness, no numbness. HEMATOLOGICAL: Denies any bleeding or petechiae. GENITOURINARY: Denies any burning micturition, frequency, or urgency. MUSCULOSKELETAL/RHEUMATOLOGICAL: Denies any joint pain, swelling, or any muscle pain. ENDOCRINE: Denies any polyuria or polydipsia. The rest of the 14-point review of systems is negative. PHYSICAL EXAMINATION: GENERAL: The patient is alert and oriented x3, not in any acute distress. Well developed, well nourished. HEENT: Pupils are round and equally reacting to light. EOMI. No scleral icterus. No conjunctival pallor. Normocephalic, atraumatic. No pharyngeal erythema. No thyromegaly. CARDIOVASCULAR: S1 and S2 present. No murmurs, rubs, or gallops. PULMONARY: Chest is clear to auscultation, no wheezing or crackles. ABDOMEN: Distended, normoactive bowel sounds. No palpable organomegaly. MUSCULOSKELETAL: No joint swelling or deformity. EXTREMITIES: No cyanosis, clubbing, or pedal edema. NEUROLOGICAL: Gross neurological examination did not reveal any focal deficits. SKIN: No rashes. Assessment and plan Chest pain, rule out acute coronary syndrome 30 weeks gestation of Monitor vital signs Monitor CBC Monitor CMP Continue telemetry monitoring trend troponins Ordered 2D echo VQ scan was done showed low probability for PE Cardiology consult Labs and medication were reviewed.. Continue same treatment. Continue with symptomatic treatment. Resume home medication. Monitor labs and vitals. DVT and GI prophylaxis. Further recommendations as per clinical course of the patient Dictation was produced using [employer] dictation software. please excuse any grammatical, word or spelling errors. Past Medical History Past Medical History: Asthma Additional Past Medical History / Comment(s): Maternal tachycardia (negative evaluation). History of anxiety/depression. IBS. has 3 children at home. History of Any Multi-Drug Resistant Organisms: None Reported Past Surgical History: No Surgical Hx Reported Additional Past Surgical History / Comment(s): wisdom teeth removed, colonoscopy Past Anesthesia/Blood Transfusion Reactions: No Reported Reaction Past Psychological History: Anxiety, Depression, PTSD Additional Psychological History / Comment(s): not currently medicated Smoking Status: Never smoker Past Alcohol Use History: None Reported Past Drug Use History: None Reported - Past Family History Mother Family Medical History: No Reported History Medications and Allergies Home Medications Medication Instructions Recorded Confirmed Type Vit No.179/Iron/Folic 1 tab PO DAILY 11/11/24 02/11/25 History [ Tablet] Allergies Allergy/AdvReac Type Severity Reaction Status Date / Time Penicillins Allergy Rash/Hives Verified 02/11/25 14:49 Physical Exam Vitals: Vital Signs Temp Pulse Pulse Pulse Resp BP BP 02/12/25 07:00 98.3 F 75 16 02/12/25 01:56 97.9 F 83 02/11/25 21:11 82 17 115/65 02/11/25 20:00 97.6 F 87 97/62 02/11/25 19:43 95 18 95/61 02/11/25 18:33 108 H 18 118/84 02/11/25 16:05 105 H 18 02/11/25 16:04 96 18 117/67 02/11/25 16:03 86 02/11/25 14:58 98 20 117/72 02/11/25 13:37 82 20 123/73 02/11/25 12:48 91 18 119/75 02/11/25 12:02 98.0 F 99 18 123/84 BP BP BP Pulse Ox 02/12/25 07:00 107/70 100 02/12/25 01:56 100/65 98 02/11/25 21:11 99 02/11/25 20:00 99 02/11/25 19:43 02/11/25 18:33 98 02/11/25 16:05 114/73 98 02/11/25 16:04 98 02/11/25 16:03 106/64 02/11/25 14:58 98 02/11/25 13:37 100 02/11/25 12:48 100 02/11/25 12:02 100 Intake and Output 02/11/25 02/12/25 02/12/25 22:59 06:59 14:59 Other: # Voids 1 1 Weight 72.575 kg Results CBC & Chem 7: 02/12/25 06:06 02/12/25 06:06 Labs: Abnormal Lab Results - Last 24 Hours (Table) 02/11/25 02/11/25 02/11/25 Range/Units 12:27 12:27 12:27 WBC 11.95 H (4.50-10.00) 10*3/uL RBC 3.85 L (4.10-5.20) 10*6/uL Hgb (12.0-15.0) g/dL Hct 34.2 L (37.2-46.3) % Immature Gran # 0.17 H (0.00-0.04) 10*3/uL Neutrophils # 8.74 H (1.80-7.70) 10*3/uL PT 9.7 L (10.0-12.5) sec D-Dimer (<0.60) mg/L FEU Sodium 133 L (137-145) mmol/L Carbon Dioxide 21 L (22-30) mmol/L BUN (9.0-27.0) mg/dL Creatinine 0.43 L (0.52-1.04) mg/dL BUN/Creatinine Ratio (12.00-20.00) Ratio Calcium (8.7-10.3) mg/dL Total Bilirubin (0.3-1.2) mg/dL Total Protein (6.2-8.2) g/dL Albumin (3.8-4.9) g/dL Albumin/Globulin Ratio (1.60-3.17) Ratio Urine Ketones (Negative) 02/11/25 02/11/25 02/12/25 Range/Units 12:27 13:36 06:06 WBC (4.50-10.00) 10*3/uL RBC 3.41 L (4.10-5.20) 10*6/uL Hgb 10.5 L (12.0-15.0) g/dL Hct 31.8 L (37.2-46.3) % Immature Gran # 0.11 H (0.00-0.04) 10*3/uL Neutrophils # (1.80-7.70) 10*3/uL PT (10.0-12.5) sec D-Dimer 1.98 H (<0.60) mg/L FEU Sodium (137-145) mmol/L Carbon Dioxide (22-30) mmol/L BUN (9.0-27.0) mg/dL Creatinine (0.52-1.04) mg/dL BUN/Creatinine Ratio (12.00-20.00) Ratio Calcium (8.7-10.3) mg/dL Total Bilirubin (0.3-1.2) mg/dL Total Protein (6.2-8.2) g/dL Albumin (3.8-4.9) g/dL Albumin/Globulin Ratio (1.60-3.17) Ratio Urine Ketones 1+ H (Negative) 02/12/25 Range/Units 06:06 WBC (4.50-10.00) 10*3/uL RBC (4.10-5.20) 10*6/uL Hgb (12.0-15.0) g/dL Hct (37.2-46.3) % Immature Gran # (0.00-0.04) 10*3/uL Neutrophils # (1.80-7.70) 10*3/uL PT (10.0-12.5) sec D-Dimer (<0.60) mg/L FEU Sodium (137-145) mmol/L Carbon Dioxide 20.2 L (22-30) mmol/L BUN 5.5 L (9.0-27.0) mg/dL Creatinine 0.5 L (0.52-1.04) mg/dL BUN/Creatinine Ratio 11.00 L (12.00-20.00) Ratio Calcium 8.2 L (8.7-10.3) mg/dL Total Bilirubin <0.2 L (0.3-1.2) mg/dL Total Protein 5.3 L (6.2-8.2) g/dL Albumin 3.2 L (3.8-4.9) g/dL Albumin/Globulin Ratio 1.52 L (1.60-3.17) Ratio Urine Ketones (Negative) Thrombosis Risk Factor Assmnt - Choose All That Apply Any of the Below Risk Factors Present?: Yes Each Factor Represents 1 point: or Other Risk Factors: No Other congenital or acquired thrombophilia - If yes, enter type in comment: No Thrombosis Risk Factor Assessment Total Risk Factor Score: 1 Thrombosis Risk Factor Assessment Level: Low Risk
== END 2025-02-12 12:16 | disposition home or self-care (01) ==
LOC: EC 11:56 → 6NMEDSUR 15:12
PROVIDERS: ADMIT Internal Medicine; ATTEND Internal Medicine
DX: O26.899 Other specified pregnancy related conditions, unspecified trimester (principal); R07.89 Other chest pain; O99.419 Diseases of the circulatory system complicating pregnancy, unspecified trimester; I07.1 Rheumatic tricuspid insufficiency; I45.10 Unspecified right bundle-branch block; O99.513 Diseases of the respiratory system complicating pregnancy, third trimester; J45.909 Unspecified asthma, uncomplicated; O09.213 Supervision of pregnancy with history of pre-term labor, third trimester; O99.343 Other mental disorders complicating pregnancy, third trimester; F41.9 Anxiety disorder, unspecified; R79.89 Other specified abnormal findings of blood chemistry; D72.829 Elevated white blood cell count, unspecified; Z3A.30 30 weeks gestation of pregnancy; Z88.0 Allergy status to penicillin
CPT/HCPCS: 96361 ×2; 96374; 99291; 36415; 93005; 93306; 82731; 85379; 83880; 80053 ×2; 83690; 83735; 84443; 84484; 85025 ×2; 85610; 85730; 81003; 71045; 76705; 93970; 78580; G0378 ×2; A9540; J1308

== ENCOUNTER 2025-03-22 10:03 | Outpatient (CLI) | payer OTHER ==
[2025-03-22] MEDS: LACTATED RINGERS 1,000 ML IV ONE (10:30)
[2025-03-22 10:40] LABS: Basophils # (A) 0.03 10*3/uL (0.00-0.10); Basophils % (A) 0.2 %; Eosinophils # (A) 0.12 10*3/uL (0.04-0.35); HCT 33.8 % (37.2-46.3); HGB 11.5 g/dL (12.0-15.0); Lymphocytes # (A) 1.69 10*3/uL (0.90-5.00); Lymphocytes % (A) 13.5 %; MCH 30.1 pg (27.0-32.0); MCV 88.5 fL (80.0-97.0); Monocytes # (A) 0.77 10*3/uL (0.20-1.00); Monocytes % (A) 6.2 %; Neutrophils # (A) 9.72 10*3/uL (1.80-7.70); Neutrophils % (A) 77.7 %; Platelet Count 225 10*3/uL (140-440); RBC 3.82 10*6/uL (4.10-5.20); RDW 12.6 % (11.5-14.5); WBC 12.51 10*3/uL (4.50-10.00)
[2025-03-22] MEDS ORDERED: LACTATED RINGERS 1,000 ML IV SCH (10:45)
[2025-03-22 10:53] LABS: Appearance,Urine Clear (Clear); Bilirubin,Urine Negative (Negative); Blood,Urine Negative (Negative); Color,Urine Yellow; Glucose,Urine (UA) Negative (Negative); Ketones,Urine Negative (Negative); Leukocyte Esterase,Urine Negative (Negative); Nitrite,Urine Negative (Negative); PH, Urine 6.5 (5.0-8.0); Protein,Urine Negative (Negative); Specific Gravity,Urine 1.024 (1.001-1.035); Urobilinogen,Urine <2.0 mg/dL (<2.0)
[2025-03-22 11:53] VITALS: BP 137/80; PULSE 119; RESP 16; TEMP 98.2
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
== END 2025-03-22 13:02 | disposition home or self-care (01) ==
LOC: FBPOP 10:03
PROVIDERS: ATTEND Obstetrics & Gynecology
DX: O36.8130 Decreased fetal movements, third trimester, not applicable or unspecified (principal); Z3A.35 35 weeks gestation of pregnancy; Z88.0 Allergy status to penicillin
CPT/HCPCS: 59025; 81003; 85025; 96366; 96367

== ENCOUNTER 2025-04-13 12:25 | Inpatient (IN) | payer OTHER ==
[2025-04-13] MEDS: LACTATED RINGERS 1,000 ML IV ONE (15:03)
--- NOTE | 2025-04-13 15:07 | US ---
EXAMINATION TYPE: US OB limited DATE OF EXAM: 04/13/2025 COMPARISON: NONE CLINICAL INDICATION: Female, 29 years old with history of trauma to abdomen/rule out abruption; traum a to abd, no bleeding, contractions began TECHNIQUE:: OBTA FINDINGS: GESTATIONAL AGE / DATING Physician Established: (38 weeks/2 days) EDC: 04/25/2025 No growth performed on today?s study per ordering physician SURVEY PLACENTA: fundal PREVIA: no Ultrasound evidence of abruption = no CERVICAL LENGTH (transabdominal: norm > 3.0cm): obscured by shadowing head and non distended b ladder PRESENTATION: Vertex LIE: Longitudinal HEART RATE: 135 bpm RHYTHM: Normal IMPRESSION: No evidence for abruption or abnormal placental collection. [facility], , 04/13/2025 3:04 PM
[2025-04-13] MEDS ORDERED: LIDOCAINE 0.5% (PF) 5 MG/ML (50 ML SDV) SQ PRN (16:24)
[2025-04-13] MEDS ORDERED: TERBUTALINE 1 MG/ML VIAL SQ PRN (16:24)
[2025-04-13] MEDS ORDERED: CARBOPROST TROMETHAMINE 250 MCG/ML 1 ML AMP IM PRN (16:24)
[2025-04-13] MEDS ORDERED: TRANEXAMIC 1,000 MG/100ML-NACL 1,000 MG in EMPTY BAG 1 BAG IV PRN (16:24)
[2025-04-13] MEDS ORDERED: OXYTOCIN 10 UNIT/ML 1 ML VIAL IM PRN (16:24)
[2025-04-13] MEDS ORDERED: METHYLERGONOVINE 0.2 MG/ML 1 ML AMP IM PRN (16:24)
[2025-04-13] MEDS: LACTATED RINGERS 1,000 ML IV SCH (16:28)
[2025-04-13] MEDS ORDERED: BUTORPHANOL 1 MG/ML 1 ML VIAL IV PRN (16:31)
[2025-04-13 17:54] LABS: Basophils # (A) 0.04 10*3/uL (0.00-0.10); Basophils % (A) 0.3 %; Eosinophils # (A) 0.13 10*3/uL (0.04-0.35); Eosinophils % (A) 0.9 %; HCT 33.9 % (37.2-46.3); HGB 11.3 g/dL (12.0-15.0); Lymphocytes # (A) 2.08 10*3/uL (0.90-5.00); Lymphocytes % (A) 14.8 %; MCH 29.6 pg (27.0-32.0); MCHC 33.3 g/dL (32.0-37.0); MCV 88.7 fL (80.0-97.0); Monocytes # (A) 0.88 10*3/uL (0.20-1.00); Monocytes % (A) 6.2 %; Neutrophils # (A) 10.76 10*3/uL (1.80-7.70); Neutrophils % (A) 76.3 %; Platelet Count 234 10*3/uL (140-440); RBC 3.82 10*6/uL (4.10-5.20); RDW 13.2 % (11.5-14.5); WBC 14.10 10*3/uL (4.50-10.00)
[2025-04-14] MEDS: OXYTOCIN 30 UNITS/500 ML NS 30 UNIT in SALINE 1 500ML.BAG IV SCH (07:00)
--- NOTE | 2025-04-14 10:18 | P.HPOB ---
History of Present Illness H&P Date: 04/14/25 Chief Complaint: 38-3/7 weeks, early labor The patient is a 29-year-old 5 para 2-1-1-3 who was seen in the office yesterday after having had blunt abdominal trauma from an elbow as her partner tried to catch her as she was falling. She was sent to labor and delivery for monitoring secondary to the trauma at which time she was noted to have a category 1 heart rate tracing. Despite this, she began to have significant contractions and increasing discomfort. She was admitted for probable early labor. She did make slight cervical change overnight making the diagnosis of early labor and had Pitocin augmentation started as well as artificial rupture of membranes. Her has been otherwise essentially uncomplicated. She does have a history of a previous delivery but had no issues with this during this . She is additionally Rh- and received RhoGAM at 28 weeks. Group B strep status is negative. Obstetrical history: 5 para 2-1-1-3 with 2 term deliveries and 1 delivery at 34 weeks. Current statistics are listed in history of present illness. EDC of 04/25/2025 was established by last menstrual period and confirmed by 15-week ultrasound. Laboratory workup demonstrates a blood type of O- with a negative antibody screen. Rubella status is immune. The remainder of the laboratory workup was within normal limits aside from a Pap smear showing low-grade changes which will be followed up . 1 hour Glucola was normal and group B strep status is negative. Gynecologic history: Unremarkable with no history of any infections to include STDs. Review of Systems Review of systems is confined to history of present illness. Past Medical History Past Medical History: Asthma Additional Past Medical History / Comment(s): Maternal tachycardia (negative evaluation). History of anxiety/depression. IBS. has 3 children at home. History of Any Multi-Drug Resistant Organisms: None Reported Past Surgical History: No Surgical Hx Reported Additional Past Surgical History / Comment(s): wisdom teeth removed, colonoscopy Past Anesthesia/Blood Transfusion Reactions: No Reported Reaction Past Psychological History: Anxiety, Depression, PTSD Additional Psychological History / Comment(s): not currently medicated Smoking Status: Never smoker Past Alcohol Use History: None Reported Past Drug Use History: None Reported - Past Family History Mother Family Medical History: No Reported History Medications and Allergies Home Medications Medication Instructions Recorded Confirmed Type Vit No.179/Iron/Folic 1 tab PO DAILY 11/11/24 04/13/25 History [ Tablet] Allergies Allergy/AdvReac Type Severity Reaction Status Date / Time Penicillins Allergy Rash/Hives Verified 04/13/25 12:48 Exam Vital Signs Temp Pulse Pulse Resp BP Pulse Ox 04/13/25 18:05 96.7 F L 88 16 122/74 04/13/25 16:08 97.5 F L 93 16 129/76 98 Intake and Output 04/13/25 04/14/25 04/14/25 22:59 06:59 14:59 Intake Total 3 Balance 3 Intake: Intake, IV Titration 3 Amount Oxytocin 30 Units/500 ml 3 Ns 30 unit In Saline 1 500ml.bag @ Per Protocol IV .Q0M [facility] Rx#:[id number] Other: # Voids 1 4 Weight 77.111 kg In general, this is a well-developed well-nourished white female in no acute distress. Her heart has a regular rhythm and rate without murmur. Her lungs clear to auscultation bilaterally in all salter. Her abdomen is gravid, nondistended, has normal active bowel sounds, soft, nontender, and without any palpable masses aside from uterine fundus. Her extremities are without any cyanosis, clubbing, or edema and are nontender to palpation bilaterally. Digital cervical examination demonstrates the cervix to be 2+ centimeters dilated, 50% effaced, with the vertex and presentation at -2 station. Artificial rupture of membranes is carried out demonstrating clear fluid. Results Result Diagrams: 04/13/25 15:00 Abnormal Lab Results - Last 24 Hours (Table) 04/13/25 Range/Units 15:00 WBC 14.10 H (4.50-10.00) 10*3/uL RBC 3.82 L (4.10-5.20) 10*6/uL Hgb 11.3 L (12.0-15.0) g/dL Hct 33.9 L (37.2-46.3) % Immature Gran # 0.21 H (0.00-0.04) 10*3/uL Neutrophils # 10.76 H (1.80-7.70) 10*3/uL Assessment and Plan (1) Active labor at term Current Visit: Yes Status: Acute Code(s): UGF5467 - SNOMED Code(s): 12897924 Plan: The patient is admitted in early labor with all signs reassuring. She has had Pitocin augmentation started and undergone artificial rupture of membranes. She will have close maternal and surveillance and expectant management will be practiced. She is a good candidate for either IV or epidural analgesia, chart where she may choose.
[2025-04-14] MEDS ORDERED: ROPIVACAINE 5 MG/ML 30 ML VIAL ONE (12:20)
[2025-04-14] MEDS ORDERED: fentaNYL (PF) 50 MCG/ML 5 ML AMP ONE (12:20)
[2025-04-14] MEDS ORDERED: SODIUM CHLORIDE 0.9% 250 ML BAG ONE (12:20)
[2025-04-14] MEDS ORDERED: LANOLIN CREAM 1 GM TUBE TOPICAL PRN (15:00)
[2025-04-14] MEDS ORDERED: HYDROCORTISONE 2.5% RECTAL CREAM 30 GM TUBE RECTAL PRN (15:00)
[2025-04-14] MEDS ORDERED: OXYTOCIN 30 UNITS/500 ML NS 30 UNIT in SALINE 1 500ML.BAG IV SCH (15:00)
[2025-04-14] MEDS ORDERED: diphenhydrAMINE 25 MG CAP PO PRN (15:00)
[2025-04-14] MEDS ORDERED: diphenhydrAMINE 50 MG/ML 1 ML VIAL IVP PRN ×2 (15:00)
[2025-04-14] MEDS ORDERED: ZOLPIDEM 5 MG TAB PO PRN (15:00)
[2025-04-14] MEDS ORDERED: SIMETHICONE 80 MG CHEWABLE PO PRN (15:00)
--- NOTE | 2025-04-14 15:05 | P.PROBDLV ---
Vaginal Delivery Note - . Vaginal Delivery Note: Date of service/delivery: 04/14/2025 The patient is a 29-year-old 5 para 2-1-1-3 admitted at 38-3/7 weeks in early labor with all signs reassuring, category 1 heart rate tracing. She did have 1 to abdominal trauma yesterday which initially led to her evaluation and extended monitoring at which time she was found to be cesar regularly. She was initially admitted for observation but then found to be in early labor. Her has otherwise been uncomplicated and group B strep status is negative. This morning, she had made some cervical change and had Pitocin augmentation started followed by artificial rupture of membranes for clear fluid. She made progress into the active phase of labor at which time an epidural catheter was placed for analgesia. She then progressed to complete and pushed over the course of a single contraction to a normal spontaneous vaginal delivery of a viable 6 pound 9 ounce baby girl with Apgars of 9 at 1 minute and 9 at 5 minutes delivered in the direct occiput anterior position. The placenta was delivered spontaneously, intact, grossly normal with a grossly normal, centrally inserted three-vessel cord. There were no lacerations of the perineum, vagina, or cervix. Estimated blood loss for the case was approximately 100 mL. There were no complications. Both mother and are resting comfortably in recovery.
[2025-04-14] MEDS: IBUPROFEN 800 MG TAB PO SCH (18:21)
[2025-04-14] MEDS: BENZOCAINE/MENTHOL SPRAY 1 GM/SPRAY AEROSOL TOPICAL PRN (18:26)
[2025-04-14] MEDS: SENNOSIDES-DOCUSATE SODIUM 1 EACH TAB PO SCH (20:14)
[2025-04-14] MEDS: ACETAMINOPHEN TAB 500 MG TAB PO SCH (20:14)
[2025-04-14 22:14] LABS: ALT 13 U/L (4-34); AST 25 U/L (14-36); African American GFR (CKD) >90 (>60 ml/min/1.73 sqM); Albumin 3.1 g/dL (3.5-5.0); Alkaline Phosphatase 121 U/L (38-126); Anion Gap 11 mmol/L; Blood Urea Nitrogen 5 mg/dL (7-17); Calcium 9.4 mg/dL (8.4-10.2); Carbon Dioxide 20 mmol/L (22-30); Chloride 103 mmol/L (98-107); Glucose 97 mg/dL (74-99); Non-African American GFR(CKD) >90 (>60 ml/min/1.73 sqM); Potassium 4.2 mmol/L (3.5-5.1); Sodium 134 mmol/L (137-145); Total Protein 5.4 g/dL (6.3-8.2)
--- NOTE | 2025-04-14 22:19 | P.CONS ---
History of Present Illness - Reason for Consult Consult date: 04/14/25 Increased lower extremity numbness and weakness - Chief Complaint Lower extremity numbness and weakness - History of Present Illness This is a 29-year-old female patient with no significant past medical history 5 para 2-1-1-3 admitted at 38-3/7 weeks in early labor after having a blunt abdominal trauma from an elbow as her partner was trying to catch her as she was falling. Patient is with no complications after delivery. She a vaginal delivery and an epidural catheter was placed for anesthesia. Hospitalist was consulted for concern of increased bilateral lower extremity weakness and numbness. According to patient that prior to her vaginal delivery she did address swelling and numbness of her lower extremity with her OBGYN at his office a few days ago with impression that this is normal due to increased swelling and edema . No history of preeclampsia or DVT. No history of back pain or trauma to her back . She is complaining of lower back pain currently where she was given Tylenol and Motrin . Patient reports that her numbness was intermittent during labor and was able to ambulate to the bathroom several times until an hour ago where she started complaining of bilateral lower extremity weakness and increased numbness ( L>R) . No prior episodes with her previous pregnancies or epidural anesthesia . No complaints of bladder or bowel incontinence . Patient currently unable to stand and ambulate . She was able to slightly wiggle her toes . Hgb post was 11.3 . Vitals are stable . No fevers or chills . Anesthesia team came and evaluated patient as well with impression that this is less likely epidural anesthesia related . Upon further examining the patient, patient reported that her right lower extremity numbness has improved. ROS : Negative except as mentioned HPI PE : General: nontoxic, no distress, appears at stated age Derm: warm, dry, intact Head: atraumatic, normocephalic, symmetric Eyes: EOMI, anicteric sclera Mouth: no lip lesion, mucus membranes moist Cardiovascular: S1 S2 reg, no murmur, rubs, or gallops Lungs: CTA bilateral, no rales, no accessory muscle use Abdominal: soft, non-tender to palpataion, no appreciable organomegaly Extremities: no gross muscle atrophy, no edema, no contractures Neuro: Alert, Oriented, CNII-XII grossly intact, motor upper ext 5/5 , lower ext weakness L>R, sensory light touch was abnormal L>R upp to the chin. Patient cant flex or dorsiflex both feet . Gait was not assessed . DTR were normal Psych: well appearing, appropriate affect Back : lower back tenderness upon palpation Assessment and plan : - Bilateral lower extremity swelling with motor weakness and numbness : Differential diagnosis including DVT, preeclampsia, peripheral nerve injury or compression neuropathy related to the delivery, cauda equina syndrome (less likely with no complaints of bladder and bowel dysfunction for now) Will continue to monitor patient as patient reports that her weakness and sensory deficit at the right lower extremity is improving . If symptoms does not improve within an hour , Will order lumbar spine MRI STAT Lower extremity venous Doppler, urine analysis, comprehensive metabolic panel, CBC Thank you for the consult and will continue to follow Time spent : 55 min Past Medical History Past Medical History: Asthma Additional Past Medical History / Comment(s): Maternal tachycardia (negative evaluation). History of anxiety/depression. IBS. has 3 children at home. History of Any Multi-Drug Resistant Organisms: None Reported Past Surgical History: No Surgical Hx Reported Additional Past Surgical History / Comment(s): wisdom teeth removed, colonoscopy Past Anesthesia/Blood Transfusion Reactions: No Reported Reaction Past Psychological History: Anxiety, Depression, PTSD Additional Psychological History / Comment(s): not currently medicated Smoking Status: Never smoker Past Alcohol Use History: None Reported Past Drug Use History: None Reported - Past Family History Mother Family Medical History: No Reported History Medications and Allergies Home Medications Medication Instructions Recorded Confirmed Type Vit No.179/Iron/Folic 1 tab PO DAILY 11/11/24 04/13/25 History [ Tablet] Allergies Allergy/AdvReac Type Severity Reaction Status Date / Time Penicillins Allergy Rash/Hives Verified 04/13/25 12:48 Physical Exam Vitals: Vital Signs Temp Pulse Resp BP Pulse Ox 04/14/25 20:17 99.2 F 102 H 15 118/76 97 04/14/25 17:00 98.4 F 98 16 110/64 04/14/25 16:45 108 H 16 108/65 04/14/25 16:30 99 16 107/57 04/14/25 16:15 98 16 118/60 04/14/25 16:00 93 16 113/80 04/14/25 15:45 98.4 F 85 16 108/56 04/14/25 15:30 91 16 118/63 04/14/25 15:15 99 16 119/59 04/14/25 15:00 97.3 F L 95 16 112/62 98 Intake and Output 04/14/25 04/14/25 04/14/25 06:59 14:59 22:59 Intake Total 53.667 367 Output Total 300 Balance 53.667 67 Intake: Intake, IV Titration 53.667 167 Amount Oxytocin 30 Units/500 ml 53.667 167 Ns 30 unit In Saline 1 500ml.bag @ Per Protocol IV .Q0M [facility] Rx#:[id number] Oral 200 Output: Output, Quantitative 300 Blood Loss Other: # Voids 4 Results CBC & Chem 7: 04/13/25 15:00
[2025-04-14 23:29] VITALS: TEMP 98.3
[2025-04-14 23:41] LABS: Basophils # (A) 0.03 10*3/uL (0.00-0.10); Basophils % (A) 0.2 %; Eosinophils # (A) 0.04 10*3/uL (0.04-0.35); Eosinophils % (A) 0.2 %; HCT 30.4 % (37.2-46.3); HGB 10.4 g/dL (12.0-15.0); Lymphocytes # (A) 1.52 10*3/uL (0.90-5.00); Lymphocytes % (A) 7.7 %; MCH 29.9 pg (27.0-32.0); MCHC 34.2 g/dL (32.0-37.0); MCV 87.4 fL (80.0-97.0); Monocytes # (A) 0.88 10*3/uL (0.20-1.00); Monocytes % (A) 4.5 %; Neutrophils # (A) 17.08 10*3/uL (1.80-7.70); Neutrophils % (A) 86.7 %; Platelet Count 221 10*3/uL (140-440); RBC 3.48 10*6/uL (4.10-5.20); RDW 13.3 % (11.5-14.5); WBC 19.68 10*3/uL (4.50-10.00)
[2025-04-15 03:30] LABS: Bacteria,Urine Rare /hpf; Bilirubin,Urine Negative (Negative); Blood,Urine Large (Negative); Budding Yeast,Urine Many /hpf; Color,Urine Red; Glucose,Urine (UA) Trace (Negative); Ketones,Urine Trace (Negative); Leukocyte Esterase,Urine Large (Negative); Nitrite,Urine Negative (Negative); PH, Urine 6.0 (5.0-8.0); Protein,Urine Trace (Negative); RBC,Urine >182 /hpf (0-5); Specific Gravity,Urine 1.015 (1.001-1.035); Urobilinogen,Urine <2.0 mg/dL (<2.0); WBC,Urine 43 /hpf (0-5)
[2025-04-15 06:28] LABS: Basophils # (A) 0.03 10*3/uL (0.00-0.10); Basophils % (A) 0.2 %; Eosinophils # (A) 0.16 10*3/uL (0.04-0.35); Eosinophils % (A) 1.1 %; HCT 29.0 % (37.2-46.3); HGB 9.5 g/dL (12.0-15.0); Lymphocytes # (A) 2.18 10*3/uL (0.90-5.00); Lymphocytes % (A) 14.8 %; MCH 29.3 pg (27.0-32.0); MCHC 32.8 g/dL (32.0-37.0); MCV 89.5 fL (80.0-97.0); Monocytes # (A) 1.11 10*3/uL (0.20-1.00); Monocytes % (A) 7.5 %; Neutrophils # (A) 11.12 10*3/uL (1.80-7.70); Neutrophils % (A) 75.5 %; Platelet Count 188 10*3/uL (140-440); RBC 3.24 10*6/uL (4.10-5.20); RDW 13.3 % (11.5-14.5); WBC 14.73 10*3/uL (4.50-10.00)
--- NOTE | 2025-04-15 06:57 | P.EN ---
Follow up with patient 2 hours post interview patient reports significant improvement of motor weakness with numbness /tingling . She does report that her right leg much improved than her left . She was able to ambulate with the help of her RN to the bathroom . Still no bladder or bowel incontinence. Back pain much improved. Swelling is improving Impression : Motor weakness with numbness due to leg swelling . Swelling could be significant to compress her superficial nerves. Possible sciatic neuropathy which is less likely. Pending lower ext venous Doppler. Will continue to monitor patient .
--- NOTE | 2025-04-15 07:27 | US ---
EXAMINATION TYPE: US venous doppler duplex LE BI DATE OF EXAM: 04/14/2025 10:31 PM COMPARISON: 02/11/2025 CLINICAL INDICATION: Female, 29 years old with history of r/o DVT; Numbness, Pain TECHNIQUE: The lower extremity deep venous system is examined utilizing real time linear array sonog papito with graded compression, color doppler sonography, and spectral doppler. SIDE PERFORMED: Bilateral FINDINGS: VESSELS IMAGED: Common Femoral Vein Deep Femoral Vein Greater Saphenous Vein * Femoral Vein Popliteal Vein Small Saphenous Vein * Proximal Calf Veins (* superficial vessels) Right Leg: Negative for DVT, Color Doppler imaging shows patency of the vessels. Spectral waveforms are within normal limits. Left Leg: Negative for DVT, Color Doppler imaging shows patency of the vessels. Spectral waveforms a re within normal limits. IMPRESSION: No ultrasound evidence for deep venous thrombosis. [facility], , 04/15/2025 7:25 AM
[2025-04-15 08:42] VITALS: BP 109/70; RESP 16
--- NOTE | 2025-04-15 10:37 | P.PN ---
Subjective Progress Note Date: 04/15/25 Hospital course: Patient is a very pleasant 29-year-old female with no significant medical history. She is 5 para 2-1-1-3 admitted on 04/14/25 at 38-3/7 weeks gestation in early labor after having a blunt abdominal trauma from an elbow as her partner was trying to catch her as she was falling. Patient had successful vaginal delivery with epidural and is currently with no complications after delivery. Our Hospitalist team was consulted for concerns of increased bilateral lower extremity weakness and numbness. According to patient, prior to her vaginal delivery she did address swelling and numbness of her lower extremity with her OBGYN at his office a few days ago with impression that this is normal due to increased swelling and edema . No history of preeclampsia or DVT. No history of back pain or trauma to her back . She was of lower back pain shortly after delivery and was given Tylenol and Motrin . Patient reports that her numbness/tingling was intermittent during labor and was able to ambulate to the bathroom several times .Denied prior episodes with her previous pregnancies or epidural anesthesia . No complaints of bladder or bowel inco ntinence an no saddle bag amnesia . Hgb post was 11.3 and today is 9.5 . Vitals are stable . No fevers or chills . Anesthesia team also evaluated patient with impression that this is less likely epidural anesthesia related . Patient does have mild nonpitting edema in her lower extremities. Bilateral lower extremity venous Doppler was completed negative for DVT. Patient reevaluated at bedside this morning on 04/15/2025 and reports resolution of lower back pain and lower extremity numbness. She does report intermittent tingling, but both patient and RN report that patient is ambulating independently around the room without any difficulties and full range of motion is now intact. Patient continues to deny any episodes of involuntary bowel or bladder incontinence nor experiencing any saddlebag anesthesias. Vital signs currently unremarkable with blood pressure 109/70, heart rate 85, respiratory rate 16, temp 98.3 F, and SpO2 of 98% on room air. Discussed with patient that we will place order for MARIEL hose and recommend wearing whenever out of bed for the next week and avoiding salt or foods with hidden salt. Physical exam: Vital signs reviewed and stable. General: Nontoxic, no distress and appears stated age. Derm: Skin warm and dry, normal coloration for ethnicity. Head: Atraumatic, normocephalic and symmetric. Eyes: EOM's intact, no lid lag, and anicteric sclera Mouth: no lip lesions, mucus membranes moist Cardiovascular: regular rate and rhythm with normal S1S2, no murmur, positive posterior tibial pulses bilaterally, and cap refill < 2 seconds. Lungs: Respirations even, regular, and unlabored on room air. Lungs CTA bilaterally, no rhonchi, no rales, no wheezing, and no accessory muscle usage. Abdominal: soft abdomen. Ext: ROM intact. No gross muscle atrophy, mild nonpitting bilateral lower extremities edema, no contractures. Dorsiflexion and plantarflexion intact. Strength equal and strong. Neuro: Speech clear, face symmetrical and CN II-XII grossly intact with no noted focal neuro deficits Psych: Alert and oriented to person, place, time, and situation. Appropriate and pleasant affect. Assessment and Plan of Care: Bilateral lower extremity swelling with motor weakness and numbness - Resolved. - Bilateral lower extremity venous Dopplers negative for DVT. - Order placed for MARIEL hose - Educated patient on the importance of heart healthy and avoiding salts, or foods with hidden salts such as canned or boxed foods and frozen dinners. Educated that extra salt traps the fluid in her body for longer resulting in continued or worsening edema in her legs. -Morning labs reviewed. CBC showing mild leukocytosis with WBC count of 14.73 and stable blood loss anemia with hemoglobin of 9.5. BMP revealed sodium 134, bicarb 20, and blood glucose of 97. Liver profile unremarkable. -Vital signs reviewed. Blood pressure 109/70, heart rate 85, respiratory rate 16, temp 98.3 F, and SpO2 of 98% on room air. Patient medically optimized for discharge at this time once cleared by primary admitting MENTAL HEALTH PROGRAM SPECIALIST team. Discussed recommendations with MENTAL HEALTH PROGRAM SPECIALIST, Dr. Mann and that patient is medically optimized for discharge. Thank you for allowing us to participate in the care of this pleasant patient. Do not hesitate to contact us with questions. Someone can be reached from the [facility] hospitalist group all hours of the day at [phone] or via perfect serve. Patient was seen independently by Nurse Pracitioner. This document was prepared using [employer] dictation software. Please allow for errors in car rental manager, while rare they do occur. Shiva Contreras NP rendered care for this patient independently, reviewed the findings and plan as documented in the note above and agree with plan. I did not physically speak with or examine the patient on this date. Objective - Vital Signs Vital signs: Vital Signs Temp 98.3 F 04/14/25 23:25 Pulse 85 04/15/25 08:00 Resp 16 04/15/25 08:00 BP 109/70 04/15/25 08:00 Pulse Ox 98 04/15/25 08:00 FiO2 Intake & Output 04/14/25 04/15/25 04/15/25 18:59 06:59 18:59 Intake Total 420.667 Output Total 300 1100 Balance 120.667 -1100 Intake: Intake, IV Titration 220.667 Amount Oxytocin 30 Units/500 ml 220.667 Ns 30 unit In Saline 1 500ml.bag @ Per Protocol IV .Q0M [facility] Rx#:[id number] Oral 200 Output: Urine 1100 Output, Quantitative 300 Blood Loss Other: # Voids 1 0 - Labs CBC & Chem 7: 04/15/25 05:42 04/14/25 21:51 Labs: Abnormal Lab Results - Last 24 Hours (Table) 04/14/25 04/14/25 04/15/25 Range/Units 21:51 23:16 02:30 WBC 19.68 H (4.50-10.00) 10*3/uL RBC 3.48 L (4.10-5.20) 10*6/uL Hgb 10.4 L (12.0-15.0) g/dL Hct 30.4 L (37.2-46.3) % Immature Gran # 0.13 H (0.00-0.04) 10*3/uL Neutrophils # 17.08 H (1.80-7.70) 10*3/uL Monocytes # (0.20-1.00) 10*3/uL Sodium 134 L (137-145) mmol/L Carbon Dioxide 20 L (22-30) mmol/L BUN 5 L (7-17) mg/dL Total Protein 5.4 L (6.3-8.2) g/dL Albumin 3.1 L (3.5-5.0) g/dL Urine Appearance Cloudy H (Clear) Urine Protein Trace H (Negative) Urine Glucose (UA) Trace H (Negative) Urine Ketones Trace H (Negative) Urine Blood Large H (Negative) Ur Leukocyte Esterase Large H (Negative) Urine RBC >182 H (0-5) /hpf Urine WBC 43 H (0-5) /hpf Urine Bacteria Rare H (None) /hpf Urine Yeast (Budding) Many H (None) /hpf 04/15/25 Range/Units 05:42 WBC 14.73 H (4.50-10.00) 10*3/uL RBC 3.24 L (4.10-5.20) 10*6/uL Hgb 9.5 L (12.0-15.0) g/dL Hct 29.0 L (37.2-46.3) % Immature Gran # 0.13 H (0.00-0.04) 10*3/uL Neutrophils # 11.12 H (1.80-7.70) 10*3/uL Monocytes # 1.11 H (0.20-1.00) 10*3/uL Sodium (137-145) mmol/L Carbon Dioxide (22-30) mmol/L BUN (7-17) mg/dL Total Protein (6.3-8.2) g/dL Albumin (3.5-5.0) g/dL Urine Appearance (Clear) Urine Protein (Negative) Urine Glucose (UA) (Negative) Urine Ketones (Negative) Urine Blood (Negative) Ur Leukocyte Esterase (Negative) Urine RBC (0-5) /hpf Urine WBC (0-5) /hpf Urine Bacteria (None) /hpf Urine Yeast (Budding) (None) /hpf
--- NOTE | 2025-04-15 10:46 | P.DS ---
Providers Date of admission: 04/13/25 16:26 Expected date of discharge: 04/15/25 Attending physician: Bola Mann Consults: 04/14/25 20:57 Consult Physician ONCE Consulting Provider: Jim Tse Consult Reason/Comments: worsening bilateral leg numbness Do you want consulting provider notified?: Yes Primary care physician: Stated None - Discharge Diagnosis(es) (1) Active labor at term Current Visit: Yes Status: Acute (2) Normal spontaneous vaginal delivery Current Visit: Yes Status: Acute Hospital Course: The patient is a 29-year-old 5 para 2-1-1-3 admitted at 38-2/7 weeks for observation secondary to having had some abdominal trauma and during her extended observation and monitoring for the trauma began to have significant contractions causing significant discomfort and was found to be in early labor. The following morning, she had made a small amount of cervical change and underwent Pitocin augmentation with artificial rupture of membranes for clear fluid. She had an epidural catheter placed for analgesia around the onset of the active phase of labor and then progressed to complete. She pushed quickly to a normal spontaneous vaginal delivery of a viable 6 pound 9 ounce baby girl with Apgars of 9 at 1 minute and 9 at 5 minutes. Her course was unremarkable with vital signs remaining stable and her temperature was afebrile throughout. She was deemed stable for discharge on day #1. She was discharged home to follow-up in the office in 6 weeks time routinely. She did have an episode of reported leg weakness for which sound physicians were consulted with no significant findings. All sensation and strength is present with her legs. She was discharged home to follow-up in the office in 6 weeks time routinely. Discharge instructions included calling for any significantly increased bleeding or foul-smelling lochia, significantly increased fever abdominal pain, perineal complaints, breast complaints, or anything else that concerned her. She was additionally instructed to have nothing in the vagina for at least 6 weeks time to include intercourse. She understood her instructions and agrees to follow-up as noted above. Discharge medications included continued vitamins as she has opted to breast-feed. She was otherwise to use [id number] analgesic pain medications as needed. Maternal blood type is O- and cord blood was sent for evaluation for the necessity of RhoGAM prior to discharge. Rubella status is immune. Procedures: #1. Pitocin augmentation #2. Artificial rupture of membranes #3. Epidural analgesia #4. Normal spontaneous vaginal delivery #5. Internal medicine consultation Patient Condition at Discharge: Stable Plan - Discharge Summary New Discharge Prescriptions: No Action Vit No.179/Iron/Folic [ Tablet] 1 tab PO DAILY Discharge Medication List Vit No.179/Iron/Folic [ Tablet] 1 tab PO DAILY 11/11/24 [History] Follow up Appointment(s)/Referral(s): Bola Mann MD [STAFF PHYSICIAN] - 05/25/25 10:45 am Discharge Disposition: HOME SELF-CARE
[2025-04-15 11:52] VITALS: PULSE 93
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
== END 2025-04-15 15:00 | disposition home or self-care (01) | DRG 807 ==
LOC: FBPOP 12:25 → 4FBP 16:26
PROVIDERS: ADMIT Obstetrics & Gynecology; ATTEND Obstetrics & Gynecology
PROC: 10907ZC Drainage of Amniotic Fluid, Therapeutic from Products of Conception, Via Natural or Artificial Opening (ICD-10-PCS; 2025-04-13)
PROC: 3E033VJ Introduction of Other Hormone into Peripheral Vein, Percutaneous Approach (ICD-10-PCS; 2025-04-13)
PROC: 10E0XZZ Delivery of Products of Conception, External Approach (ICD-10-PCS; principal; 2025-04-14)
DX: O99.52 Diseases of the respiratory system complicating childbirth (principal); Z37.0 Single live birth; O99.344 Other mental disorders complicating childbirth; F32.A Depression, unspecified; J45.909 Unspecified asthma, uncomplicated; S39.91XA Unspecified injury of abdomen, initial encounter; F41.9 Anxiety disorder, unspecified; F43.10 Post-traumatic stress disorder, unspecified; Z3A.38 38 weeks gestation of pregnancy
CPT/HCPCS: 59025; 76815; 80053; 81001; 85025; 86850; 86870; 86900; 86901; 93970; 96360; 96361; 99215